=== PATIENT | male | born 1980 | race Caucasian/White ===

== ENCOUNTER 2016-09-05 19:43 | Emergency (ER) | payer SELFPAY ==
[~2016-09-05] VITALS: Ht 180.3 cm; Wt 83.0 kg
[~2016-09-05 19:43] MED LIST: CLON.5 PO; DICL75 PO; MMW SS; PENI500T PO
[2016-09-05 19:44] VITALS: BP 167/101; PULSE 92; RESP 15; TEMP 97.2; O2SAT 97
[2016-09-06 01:41] VITALS: BP 171/113; PULSE 98; RESP 18; O2SAT 98
[2016-09-06 02:02] VITALS: BP 155/98; PULSE 92; RESP 18; O2SAT 96
[2016-09-06] MEDS ORDERED: ACETAMINOPHEN 325 MG TAB PO ONE (03:00)
[2016-09-06] MEDS ORDERED: ONDANSETRON HCL 4 MG/2 ML VIAL IV PUSH ONE (03:00)
[2016-09-06 03:21] VITALS: BP 160/95; PULSE 92; RESP 18; O2SAT 97
--- NOTE | 2016-09-06 03:21 | RADRPT ---
EXAM DATE/TIME: 09/06/2016 03:09 [facility] COMPARISON: CT BRAIN W/O CONTRAST, August 07, 2014, 21:36. INDICATIONS : Snycopal episode. Left frontal head trauma. RADIATION DOSE: 38.55 CTDIvol (mGy) MEDICAL HISTORY : Seizures. Hypertension. SURGICAL HISTORY : None. ENCOUNTER: Initial ACUITY: 1 day PAIN SCALE: 7/10 LOCATION: Left frontal TECHNIQUE: Multiple contiguous axial images were obtained of the head. Using automated exposure control and adj ustment of the mA and/or kV according to patient size, radiation dose was kept as low as reasonably a chievable to obtain optimal diagnostic quality images. FINDINGS: CEREBRUM: The ventricles are normal for age. No evidence of midline shift, mass lesion, hemorrhage or acute in farction. No extra-axial fluid collections are seen. POSTERIOR FOSSA: The cerebellum and brainstem are intact. The 4th ventricle is midline. The cerebellopontine angle i s unremarkable. EXTRACRANIAL: The visualized portion of the orbits is intact. SKULL: The calvaria is intact. No evidence of skull fracture. CONCLUSION: Normal examination. Joseph Mathew MD on September 06, 2016 at 3:19 Board Certified Radiologist. This report was verified electronically.
[2016-09-06 03:36] LABS: BASOPHIL % 0.6 % (0.0-2.0); EOSINOPHIL # 0.5 TH/MM3 (0-0.4); EOSINOPHIL % 8.5 % (0.0-4.0); HEMO FLAGS DIFF FINAL; LYMPH % 33.1 % (9.0-44.0); LYMPHOCYTE # 2.1 TH/MM3 (1.0-4.8); MEAN CELL VOLUME 92.2 FL (80.0-100.0); MEAN CORPUSCULAR HGB CONC 33.6 % (32.0-36.0); MONO % 10.3 % (0.0-8.0); NEUT % 47.5 % (16.0-70.0); PLATELET COUNT 229 TH/MM3 (150-450); RED BLOOD COUNT 4.99 MIL/MM3 (4.50-5.90); RED CELL DISTRIBUTION WIDTH 13.5 % (11.6-17.2); WHITE BLOOD COUNT 6.3 TH/MM3 (4.0-11.0)
[2016-09-06 03:47] LABS: ALKALINE PHOSPHATASE 58 U/L (45-117); TOTAL BILIRUBIN ADULT 0.3 MG/DL (0.2-1.0)
[2016-09-06 03:48] LABS: ALT (GPT) 75 U/L (12-78); ANION GAP 8 MEQ/L (5-15); AST (GOT) 78 U/L (15-37); BICARBONATE 27.5 MEQ/L (21.0-32.0); BLOOD UREA NITROGEN 14 MG/DL (7-18); CHLORIDE 104 MEQ/L (98-107); GLOMERULAR FILTRATION RATE 124 ML/MIN (>89); POTASSIUM 4.1 MEQ/L (3.5-5.1); SODIUM (NA) 139 MEQ/L (136-145)
[2016-09-06 04:33] VITALS: BP 106/57; PULSE 73; RESP 16; O2SAT 98
[2016-09-06 04:50] VITALS: BP 129/79
--- NOTE | 2016-09-06 04:52 | PD ---
HPI Chief Complaint: Fall Time Seen by Provider: 02:12 Travel History International Travel<30 days: No Contact w/Intl Traveler<30days: No Traveled to known affect area: No History of Present Illness HPI Patient is a 35-year-old male comes in after he says he possibly had a seizure this morning. He said he had a seizure once several years ago, but never followed up with any doctors regarding this. He is not on any medications for seizures. He says he remembers walking in the hallway, and then waking up on the floor. He is a lump to the left side of his head, and complains of a headache with some nausea. Otherwise he has been feeling normally. He denies cough, cold, fever, chills. He denies loss of urine or stool during the event. He does say that he bit his tongue. PFSH Past Medical History Anxiety: Yes Depression: Yes Diabetes: No Diminished Hearing: No Diverticulitis: Yes Hepatitis: Yes (c) Hypertension: Yes Seizures: Yes Tetanus Vaccination: Unknown Past Surgical History Other Surgery: Yes (SINUS) Social History Alcohol Use: Yes (OCCASIONALLY) Tobacco Use: Yes (/2 PPD) Substance Use: No Allergies-Medications (Allergen,Severity, Reaction): Coded Allergies: No Known Allergies (Verified , 09/05/16) Reported Meds & Prescriptions Reported Meds & Active Scripts Active Hydrocortisone Topical 1% Cream 1 Applic TOPICAL BID 7 Days Review of Systems Except as stated in HPI: all other systems reviewed are Neg General / Constitutional: No: Fever, Chills HENT: Positive: Headaches Cardiovascular: No: Chest Pain or Discomfort Respiratory: No: Shortness of Breath Gastrointestinal: Positive: Nausea, No: Vomiting Musculoskeletal: No: Weakness, Pain Skin: No Rash, No Change in Pigmentation Neurologic: No: Weakness, Dizziness Physical Exam Narrative GENERAL: Awake and alert in no acute distress. SKIN: Warm and dry. Erythematous papules on both forearms with excoriations present. HEAD: Atraumatic. Normocephalic. Large hematoma above her left eye on the forehead. EYES: Pupils equal and round. No scleral icterus. Extraocular movements intact. ENT: Mucous membranes pink and moist. NECK: Trachea midline. No JVD. No cervical spine tenderness. CARDIOVASCULAR: Regular rate and rhythm. No murmur appreciated. RESPIRATORY: No accessory muscle use. Clear to auscultation. Breath sounds equal bilaterally. GASTROINTESTINAL: Abdomen soft, non-tender, nondistended. Hepatic and splenic margins not palpable. MUSCULOSKELETAL: No obvious deformities. No clubbing. No cyanosis. No edema. NEUROLOGICAL: Awake and alert. No obvious cranial nerve deficits. Motor grossly within normal limits. Normal speech. PSYCHIATRIC: Appropriate mood and affect; insight and judgment normal. Data Data Last Documented VS Vital Signs Date Time Temp Pulse Resp B/P Pulse Ox O2 Delivery O2 Flow Rate FiO2 09/06/16 04:50 87 18 129/79 97 09/06/16 03:21 Room Air 09/05/16 19:44 97.2 Orders Complete Blood Count With Diff (09/06/16 02:48) Comprehensive Metabolic Panel (09/06/16 02:48) Ct Brain W/O Iv Contrast(Rout) (09/06/16 ) Ondansetron Inj (Zofran Inj) (09/06/16 03:00) Acetaminophen (Tylenol) (09/06/16 03:00) Mandatory Outpatient Referral (09/06/16 04:52) Labs Laboratory Tests Test 09/06/16 03:00 White Blood Count 6.3 TH/MM3 Red Blood Count 4.99 MIL/MM3 Hemoglobin 15.4 GM/DL Hematocrit 46.0 % Mean Corpuscular Volume 92.2 FL Mean Corpuscular Hemoglobin 31.0 PG Mean Corpuscular Hemoglobin 33.6 % Concent Red Cell Distribution Width 13.5 % Platelet Count 229 TH/MM3 Mean Platelet Volume 8.8 FL Neutrophils (%) (Auto) 47.5 % Lymphocytes (%) (Auto) 33.1 % Monocytes (%) (Auto) 10.3 % Eosinophils (%) (Auto) 8.5 % Basophils (%) (Auto) 0.6 % Neutrophils # (Auto) 3.0 TH/MM3 Lymphocytes # (Auto) 2.1 TH/MM3 Monocytes # (Auto) 0.7 TH/MM3 Eosinophils # (Auto) 0.5 TH/MM3 Basophils # (Auto) 0.0 TH/MM3 CBC Comment DIFF FINAL Differential Comment Sodium Level 139 MEQ/L Potassium Level 4.1 MEQ/L Chloride Level 104 MEQ/L Carbon Dioxide Level 27.5 MEQ/L Anion Gap 8 MEQ/L Blood Urea Nitrogen 14 MG/DL Creatinine 0.73 MG/DL Estimat Glomerular Filtration 124 ML/MIN Rate Random Glucose 87 MG/DL Calcium Level 8.4 MG/DL Total Bilirubin 0.3 MG/DL Aspartate Amino Transf 78 U/L (AST/SGOT) Alanine Aminotransferase 75 U/L (ALT/SGPT) Alkaline Phosphatase 58 U/L Total Protein 6.9 GM/DL Albumin 3.6 GM/DL MDM Medical Decision Making Medical Screen Exam Complete: Yes Emergency Medical Condition: Yes Medical Record Reviewed: Yes Differential Diagnosis Seizure versus syncope versus dehydration versus electrolyte abnormality Narrative Course Patient is a 35-year-old male comes in after what he thinks was a seizure this morning. Exam shows large hematoma to the left side of the forehead. There are no neurologic abnormalities. CT of the head performed shows no acute abnormalities. Labs sent show no acute abnormalities. Patient given Tylenol for headache and Zofran for nausea. He feels better after medications. Patient advised follow-up with neurology, mandatory consult placed. Patient advised to return to the ED as needed for any worsening symptoms. Diagnosis Primary Impression: Seizure Referrals: Niraj Dupree MD call for appointment Patient Instructions: General Instructions, Recurrent Seizures in Adults (ED) Additional Instructions: Follow up with neurology. You cannot drive until you have not had a seizure for 6 months. Return to the ED as needed for any worsening symptoms. Scripts Hydrocortisone Topical 1% Cream1 Applic TOPICAL BID 7 Days Ref 0 Prov:Joseline Glass MD 09/06/16 Disposition: 01 DISCHARGE HOME Condition: Stable Joseline Glass MD Sep 06, 2016 04:52 Joseline Glass MD Sep 06, 2016 04:52
[2016-09-06] MEDS ORDERED: HYDR1CRE TOPICAL (05:03)
== END 2016-09-06 05:08 | disposition home or self-care (01) ==
LOC: NEPE 19:43
DX: R56.9 Unspecified convulsions (principal); S00.83XA Contusion of other part of head, initial encounter; R11.0 Nausea; I10 Essential (primary) hypertension; F17.200 Nicotine dependence, unspecified, uncomplicated; Z86.59 Personal history of other mental and behavioral disorders; Z87.19 Personal history of other diseases of the digestive system; Z86.19 Personal history of other infectious and parasitic diseases; W18.39XA Other fall on same level, initial encounter
CPT/HCPCS: 70450; 80053; 85025; 96374; 99284; J2405

== ENCOUNTER 2016-11-08 11:41 | Observation (INO) | payer SELFPAY ==
[~2016-11-08] VITALS: Ht 180.3 cm; Wt 85.0 kg
[~2016-11-08 11:41] MED LIST changes: -CLON.5 PO; -DICL75 PO; +HYDR1CRE TOPICAL; -MMW SS; -PENI500T PO
[2016-11-08 11:42] VITALS: BP 141/89; PULSE 100; RESP 20; TEMP 98; O2SAT 97
--- NOTE | 2016-11-08 12:11 | PD ---
HPI Chief Complaint: Skin Problem Time Seen by Provider: 12:00 Travel History International Travel<30 days: No Contact w/Intl Traveler<30days: No Traveled to known affect area: No History of Present Illness HPI 36-year-old male presents for evaluation of right arm redness, swelling, pain. He reports that he woke up with these symptoms yesterday morning. The pain, redness and swelling has progressively gotten worse which prompted evaluation. The pain is a throbbing pain, constant, worse with flexion, extension, internal and external rotation of the right forearm and elbow. Associated with nausea, vomiting yesterday and today, as well as chills. 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 He doesn't recall any specific instance of being poked in his right arm but he does know that he was poked several times. He vehemently denies any IV drug abuse and says that he has never used any IV drugs. Last tetanus vaccination approximate 7 years ago. No other complaints. PFSH Past Medical History Anxiety: Yes Depression: Yes Cardiovascular Problems: Yes (HTN) Diabetes: No Diminished Hearing: No Diverticulitis: Yes Hepatitis: Yes (c) Hypertension: Yes Seizures: Yes Past Surgical History Other Surgery: Yes (SINUS) Social History Alcohol Use: Yes (OCCASIONALLY) Tobacco Use: Yes (1/2 PPD) Substance Use: No Allergies-Medications (Allergen,Severity, Reaction): Coded Allergies: No Known Allergies (Verified , 11/08/16) Reported Meds & Prescriptions Reported Meds & Active Scripts Active Hydrocortisone Topical 1% Cream 1 Applic TOPICAL BID 7 Days Review of Systems Except as stated in HPI: all other systems reviewed are Neg Physical Exam Narrative GENERAL: Well-developed well-nourished male in no acute distress SKIN: Warm and dry. Marked erythema, induration of the skin proximal right forearm and antecubital fossa region of the right arm. There is no area of fluctuance. No obvious puncture wounds are noted. No palpable foreign bodies. No axillary lymphadenopathy. HEAD: Atraumatic. Normocephalic. EYES: Pupils equal and round. No scleral icterus. No injection or drainage. ENT: No nasal bleeding or discharge. Mucous membranes pink and moist. NECK: Trachea midline. No JVD. CARDIOVASCULAR: Regular rate and rhythm. No murmur appreciated. RESPIRATORY: No accessory muscle use. Clear to auscultation. Breath sounds equal bilaterally. GASTROINTESTINAL: Abdomen soft, non-tender, nondistended. Hepatic and splenic margins not palpable. MUSCULOSKELETAL: Skin as noted above. The patient has limited flexion and extension and internal and external rotation of the right forearm and elbow. There is no tenderness to palpation to the posterior right elbow joint itself. NEUROLOGICAL: Awake and alert. No obvious cranial nerve deficits. Motor grossly within normal limits. Normal speech. Data Data Last Documented VS Vital Signs Date Time Temp Pulse Resp B/P Pulse Ox O2 Delivery O2 Flow Rate FiO2 11/08/16 11:42 98.0 100 20 141/89 97 Room Air Orders Complete Blood Count With Diff (11/08/16 12:04) Comprehensive Metabolic Panel (11/08/16 12:04) Lactic Acid Sepsis Protocol (11/08/16 12:04) Magnesium (Mg) (11/08/16 12:04) Blood Culture (11/08/16 12:04) Forearm (2vws) (11/08/16 ) Act Partial Throm Time (Ptt) (11/08/16 12:04) Prothrombin Time / Inr (Pt) (11/08/16 12:04) Tetanus/Diphtheria Tox Adult (Tetanus/Di (11/08/16 12:15) Ct Forearm W Iv Contrast (11/08/16 ) Ketorolac Inj (Toradol Inj) (11/08/16 12:45) Clindamycin Inj (Cleocin Inj) (11/08/16 12:45) Cefazolin Inj (Ancef Inj) (11/08/16 12:45) Labs Laboratory Tests Test 11/08/16 12:20 White Blood Count 13.4 TH/MM3 Red Blood Count 5.33 MIL/MM3 Hemoglobin 16.0 GM/DL Hematocrit 48.0 % Mean Corpuscular Volume 90.0 FL Mean Corpuscular Hemoglobin 30.0 PG Mean Corpuscular Hemoglobin 33.4 % Concent Red Cell Distribution Width 12.8 % Platelet Count 196 TH/MM3 Mean Platelet Volume 8.9 FL Neutrophils (%) (Auto) 74.1 % Lymphocytes (%) (Auto) 9.8 % Monocytes (%) (Auto) 12.5 % Eosinophils (%) (Auto) 3.4 % Basophils (%) (Auto) 0.2 % Neutrophils # (Auto) 10.0 TH/MM3 Lymphocytes # (Auto) 1.3 TH/MM3 Monocytes # (Auto) 1.7 TH/MM3 Eosinophils # (Auto) 0.5 TH/MM3 Basophils # (Auto) 0.0 TH/MM3 CBC Comment DIFF FINAL Differential Comment Prothrombin Time 9.8 SEC Prothromb Time International 0.9 RATIO Ratio Activated Partial 28.6 SEC Thromboplast Time Lactic Acid Level 1.8 mmol/L MDM Medical Decision Making Medical Screen Exam Complete: Yes Emergency Medical Condition: Yes Medical Record Reviewed: Yes Differential Diagnosis Cellulitis, retained foreign body, myositis, septic arthritis, sepsis Narrative Course 36-year-old male presents with 2 days progressive right arm pain, redness, swelling, as well as nausea and vomiting and chills. 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 On initial examination he is tachycardic. He is not febrile. He does have marked induration and erythema of the skin of the right forearm and limited range of motion of the right elbow. Lab work, blood cultures, right forearm x-ray have been ordered. Tetanus vaccination has been ordered. The patient was initially seen in triage where workup was initiated. The patient will be moved to a medical bed when one becomes available. Joey Gee Nov 08, 2016 12:11
[2016-11-08] MEDS ORDERED: TETANUS/DIPHTHERIA TOXOID ADULT 0.5 ML VIAL IM ONE (12:15)
[2016-11-08 12:39] LABS: BASOPHIL % 0.2 % (0.0-2.0); EOSINOPHIL # 0.5 TH/MM3 (0-0.4); EOSINOPHIL % 3.4 % (0.0-4.0); HEMO FLAGS DIFF FINAL; LYMPH % 9.8 % (9.0-44.0); LYMPHOCYTE # 1.3 TH/MM3 (1.0-4.8); MEAN CORPUSCULAR HGB CONC 33.4 % (32.0-36.0); MONO % 12.5 % (0.0-8.0); NEUT % 74.1 % (16.0-70.0); PLATELET COUNT 196 TH/MM3 (150-450); RED BLOOD COUNT 5.33 MIL/MM3 (4.50-5.90); RED CELL DISTRIBUTION WIDTH 12.8 % (11.6-17.2); WHITE BLOOD COUNT 13.4 TH/MM3 (4.0-11.0)
--- NOTE | 2016-11-08 12:42 | PD ---
Physical Exam Date Seen by Provider: Nov 08, 2016 Time Seen by Provider: 12:41 Narrative 36-year-old male with presumed abscess to the right forearm seen by Joey Gee PAC in triage with workup started. Patient has presumed abscess with cellulitis of the right forearm for the past 4 days. Please see Joey Gee's note. Data Data Last Documented VS Vital Signs Date Time Temp Pulse Resp B/P Pulse Ox O2 Delivery O2 Flow Rate FiO2 11/08/16 15:25 88 16 123/68 96 Room Air 11/08/16 11:42 98.0 Orders Complete Blood Count With Diff (11/08/16 12:04) Comprehensive Metabolic Panel (11/08/16 12:04) Lactic Acid Sepsis Protocol (11/08/16 12:04) Magnesium (Mg) (11/08/16 12:04) Blood Culture (11/08/16 12:04) Forearm (2vws) (11/08/16 ) Act Partial Throm Time (Ptt) (11/08/16 12:04) Prothrombin Time / Inr (Pt) (11/08/16 12:04) Tetanus/Diphtheria Tox Adult (Tetanus/Di (11/08/16 12:15) Ct Forearm W Iv Contrast (11/08/16 ) Ketorolac Inj (Toradol Inj) (11/08/16 12:45) Clindamycin Inj (Cleocin Inj) (11/08/16 12:45) Cefazolin Inj (Ancef Inj) (11/08/16 12:45) Iohexol 350 Inj (Omnipaque 350 Inj) (11/08/16 13:48) Lidocai-Epi 1%-1:100,000 Inj (Xylocaine- (11/08/16 14:30) Abscess Culture And Gram Stain (11/08/16 14:27) Lidocai-Epi 1%-1:100,000 Inj (Xylocaine- (11/08/16 14:30) Morphine Inj (Morphine Inj) (11/08/16 14:45) Ondansetron Inj (Zofran Inj) (11/08/16 14:45) Alprazolam (Xanax) (11/08/16 16:00) Admit Order (Ed Use Only) (11/08/16 15:51) Consult Hand Surgery (11/08/16 ) Place In Observation (11/08/16 ) Code Status (11/08/16 15:51) Vital Signs (Adult) Q4H (11/08/16 15:51) Activity Oob Ad Trinity (11/08/16 15:51) Intake + Output [id number] (11/08/16 15:51) ^ Notify Dr: Other (11/08/16 15:51) Diet Regular Basic (11/08/16 Dinner) Sodium Chlor 0.9% 1000 Ml Inj (Ns 1000 M (11/08/16 15:51) Sodium Chloride 0.9% Flush (Ns Flush) (11/08/16 16:00) Labs Laboratory Tests Test 11/08/16 12:20 White Blood Count 13.4 TH/MM3 Red Blood Count 5.33 MIL/MM3 Hemoglobin 16.0 GM/DL Hematocrit 48.0 % Mean Corpuscular Volume 90.0 FL Mean Corpuscular Hemoglobin 30.0 PG Mean Corpuscular Hemoglobin 33.4 % Concent Red Cell Distribution Width 12.8 % Platelet Count 196 TH/MM3 Mean Platelet Volume 8.9 FL Neutrophils (%) (Auto) 74.1 % Lymphocytes (%) (Auto) 9.8 % Monocytes (%) (Auto) 12.5 % Eosinophils (%) (Auto) 3.4 % Basophils (%) (Auto) 0.2 % Neutrophils # (Auto) 10.0 TH/MM3 Lymphocytes # (Auto) 1.3 TH/MM3 Monocytes # (Auto) 1.7 TH/MM3 Eosinophils # (Auto) 0.5 TH/MM3 Basophils # (Auto) 0.0 TH/MM3 CBC Comment DIFF FINAL Differential Comment Prothrombin Time 9.8 SEC Prothromb Time International 0.9 RATIO Ratio Activated Partial 28.6 SEC Thromboplast Time Sodium Level 134 MEQ/L Potassium Level 3.6 MEQ/L Chloride Level 98 MEQ/L Carbon Dioxide Level 25.7 MEQ/L Anion Gap 10 MEQ/L Blood Urea Nitrogen 7 MG/DL Creatinine 0.91 MG/DL Estimat Glomerular Filtration 95 ML/MIN Rate Random Glucose 107 MG/DL Lactic Acid Level 1.8 mmol/L Calcium Level 8.6 MG/DL Magnesium Level 2.0 MG/DL Total Bilirubin 0.5 MG/DL Aspartate Amino Transf 25 U/L (AST/SGOT) Alanine Aminotransferase 50 U/L (ALT/SGPT) Alkaline Phosphatase 84 U/L Total Protein 7.5 GM/DL Albumin 3.5 GM/DL [facility] Medical Record Reviewed: Yes Supervised Visit with WAYNE: Yes Differential Diagnosis Right arm cellulitis. Right arm abscess. History of Puncture wound right arm. Narrative Course Patient is in pain but medically stable at time of exam. Vital signs are reviewed. CBC shows slight leukocytosis of 13.4 with a minor shift. Chemistry shows a sodium 134, random glucose of 107, and a lactic acid of 1.8. Coagulation studies are normal. X-ray of the right forearm shows no bony process but large amount of soft tissue swelling. Patient is given 30 mg Toradol IV as well as 900 mg clindamycin IV and 1 g Ancef IV. Blood cultures 2 are ordered prior to IV administration. CT with IV contrast of the right forearm is ordered to rule out abscess. CT shows an abscess measuring almost 4 cm x 3 cm on the proximal dorsal forearm. Call was placed with Dr. Jackman, the hand surgeon travel professional who recommended draining and here in the ED. I&D of the abscess was performed and cultures were obtained. I recommend the patient stays for observation overnight with IV antibiotics and pain control with reevaluation the morning to ensure improvement. I'm concerned as it is over his elbow, although currently I do not suspect any joint involvement. 1510 hrs. call was placed to the hospitalist for admission. 1554 hrs. patient was discussed with Dr. Philippe who will admit the patient observation. Procedures Procedure Narrative After the risks and benefits were discussed the following procedure was performed: INCISION AND DRAINAGE OF ABSCESS: The area was prepped and was sterilely draped. A subcutaneous wheal of 1% % Xylocaine with epi with a total number 5 mL was used to anesthetize the area. The area was properly anesthetized. A number 11 scalpel was used to make a 1.5 -cm incision across the area of the abscess. Cultures were obtained. The abscess was drained utilizing blunt dissection an irrigated with normal saline. Half inch inch iodoform packing was placed in the wound. Sterile dressing applied. Diagnosis Primary Impression: Cutaneous abscess of right upper extremity Additional Impression: Right arm cellulitis Admitting Information Admitting Physician Requests: Observation Condition: Stable Juan Diego Berg Nov 08, 2016 12:42
[2016-11-08] MEDS ORDERED: KETOROLAC TROMETHAMINE 30 MG/ML (IVP) VIAL IV PUSH ONE (12:45)
[2016-11-08] MEDS ORDERED: CLINDAMYCIN INJ 900 MG in SODIUM CHLORIDE 0.9% INJ 100 ML IV ONE (12:45)
[2016-11-08 12:50] LABS: APTT (PATIENT) 28.6 SEC (24.3-30.1); INTERNATIONAL NORMALIZED RATIO 0.9 RATIO; PROTHROMBIN TIME - PATIENT 9.8 SEC (9.8-11.6)
--- NOTE | 2016-11-08 12:52 | RADRPT ---
EXAM DATE/TIME: 11/08/2016 12:31 [facility] COMPARISON: No previous studies available for comparison. INDICATIONS : Pain, swelling and reddness right forearm, denies injury MEDICAL HISTORY : None. SURGICAL HISTORY : None. ENCOUNTER: Initial ACUITY: 3 days PAIN SCORE: 10/10 LOCATION: Right Forearm FINDINGS: Two view examination of the right forearm demonstrates no evidence of fracture or dislocation. Bony mineralization is normal. There is soft tissue swelling at the lateral elbow region. CONCLUSION: Soft tissue swelling. A bony abnormality is not seen. Papito Mejia MD on November 08, 2016 at 12:50 Board Certified Radiologist. This report was verified electronically.
[2016-11-08 13:01] LABS: ANION GAP 10 MEQ/L (5-15); AST (GOT) 25 U/L (15-37); BICARBONATE 25.7 MEQ/L (21.0-32.0); BLOOD UREA NITROGEN 7 MG/DL (7-18); CHLORIDE 98 MEQ/L (98-107); GLOMERULAR FILTRATION RATE 95 ML/MIN (>89); POTASSIUM 3.6 MEQ/L (3.5-5.1); SODIUM (NA) 134 MEQ/L (136-145)
[2016-11-08 13:04] LABS: ALKALINE PHOSPHATASE 84 U/L (45-117); ALT (GPT) 50 U/L (12-78); TOTAL BILIRUBIN ADULT 0.5 MG/DL (0.2-1.0)
[2016-11-08] MEDS ORDERED: XANA1TAB2 PO (13:04)
[2016-11-08] MEDS ORDERED: IOHEXOL 350 MG/ML 10 ML VIAL (for RAD DIAG) IV ONE (13:48)
--- NOTE | 2016-11-08 14:12 | RADRPT ---
EXAM DATE/TIME: 11/08/2016 13:28 [facility] COMPARISON: No previous studies available for comparison. INDICATIONS: Right arm redness, swelling, and pain for two days. IV CONTRAST: 70 cc Omnipaque 350 (iohexol) IV RADIATION DOSE: 11.61 CTDIvol (mGy) MEDICAL HISTORY: Seizures. Hypertension. Hepatitis C. SURGICAL HISTORY: None. ENCOUNTER: Initial ACUITY: 2 days PAIN SCALE: 10/10 LOCATION: Right arm TECHNIQUE: Volumetric scanning of the forearm was performed. Using automated exposure control and adjustment of the mA and/or kV according to patient size, radiation dose was kept as low as reasonably achievable to obtain optimal diagnostic quality images. FINDINGS: There is subcutaneous edema seen throughout the inferior aspect of the upper arm especially posterior ly and laterally. This extends into the posterior and lateral aspects of the forearm. In the deep subcutan eous tissue abutting the extensor musculature there is a focal fluid collection measuring 3.7 x 1.7 x 3.4 cm. Th is likely represents an abscess in the deep subcutaneous fat adjacent to the extensor muscles. The bony struct ures are intact. The elbow is normally aligned. CONCLUSION: Soft tissue swelling with a focal fluid collection at the proximal lateral deep subcutaneous fat karen cent to the proximal aspect of the extensor musculature likely representing a 3.7 cm abscess. Papito Mejia MD on November 08, 2016 at 13:55 Board Certified Radiologist. This report was verified electronically.
[2016-11-08] MEDS ORDERED: LIDOCAINE 1%/EPINEPHrine 1:100,000 SOLN 20 ML VIAL INFIL ONE (14:30)
[2016-11-08] MEDS ORDERED: LIDOCAINE 1%/EPINEPHrine 1:100,000 SOLN 50 ML VIAL ONE (14:30)
[2016-11-08] MEDS ORDERED: ONDANSETRON HCL 4 MG/2 ML VIAL IV PUSH ONE (14:45)
[2016-11-08] MEDS ORDERED: MORPHINE SULFATE 4 MG/ML INJ IV PUSH ONE (14:45)
[2016-11-08 15:25] VITALS: BP 123/68; PULSE 88; RESP 16; O2SAT 96
--- NOTE | 2016-11-08 15:43 | PD ---
Physical Exam Narrative I, Dr. Glass, have reviewed the advance practice practitioner's documentation and am in agreement, met with the patient face to face, made the diagnosis, and the medical decision making was done by me. *My assessment and Findings: Patient is a 36 year old male who comes in complaining of pain and swelling to his right arm. 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 Exam shows large area of edema and erythema to the anterior part of the right elbow. He is able to flex to 90 degrees and extend almost fully. The posterior aspect of the albow is soft and nontender. The joint itself is not swollen. Data Data Last Documented VS Vital Signs Date Time Temp Pulse Resp B/P Pulse Ox O2 Delivery O2 Flow Rate FiO2 11/08/16 15:25 88 16 123/68 96 Room Air 11/08/16 11:42 98.0 Orders Complete Blood Count With Diff (11/08/16 12:04) Comprehensive Metabolic Panel (11/08/16 12:04) Lactic Acid Sepsis Protocol (11/08/16 12:04) Magnesium (Mg) (11/08/16 12:04) Blood Culture (11/08/16 12:04) Forearm (2vws) (11/08/16 ) Act Partial Throm Time (Ptt) (11/08/16 12:04) Prothrombin Time / Inr (Pt) (11/08/16 12:04) Tetanus/Diphtheria Tox Adult (Tetanus/Di (11/08/16 12:15) Ct Forearm W Iv Contrast (11/08/16 ) Ketorolac Inj (Toradol Inj) (11/08/16 12:45) Clindamycin Inj (Cleocin Inj) (11/08/16 12:45) Cefazolin Inj (Ancef Inj) (11/08/16 12:45) Iohexol 350 Inj (Omnipaque 350 Inj) (11/08/16 13:48) Lidocai-Epi 1%-1:100,000 Inj (Xylocaine- (11/08/16 14:30) Abscess Culture And Gram Stain (11/08/16 14:27) Lidocai-Epi 1%-1:100,000 Inj (Xylocaine- (11/08/16 14:30) Morphine Inj (Morphine Inj) (11/08/16 14:45) Ondansetron Inj (Zofran Inj) (11/08/16 14:45) Alprazolam (Xanax) (11/08/16 16:00) Admit Order (Ed Use Only) (11/08/16 15:51) Consult Hand Surgery (11/08/16 ) Place In Observation (11/08/16 ) Code Status (11/08/16 15:51) Vital Signs (Adult) Q4H (11/08/16 15:51) Activity Oob Ad Trinity (11/08/16 15:51) Intake + Output [id number] (11/08/16 15:51) ^ Notify Dr: Other (11/08/16 15:51) Diet Regular Basic (11/08/16 Dinner) Sodium Chlor 0.9% 1000 Ml Inj (Ns 1000 M (11/08/16 15:51) Sodium Chloride 0.9% Flush (Ns Flush) (11/08/16 16:00) Sodium Chloride 0.9% Flush (Ns Flush) (11/08/16 21:00) Acetaminophen (Tylenol) (11/08/16 16:00) Ondansetron Inj (Zofran Inj) (11/08/16 16:00) Bisacodyl Supp (Dulcolax Supp) (11/08/16 16:00) Docusate Sodium (Colace) (11/08/16 16:00) Basic Metabolic Panel (Bmp) (11/09/16 06:00) Complete Blood Count With Diff (11/09/16 06:00) Enoxaparin Inj (Lovenox Inj) (11/08/16 17:00) Naloxone Inj (Narcan Inj) (11/08/16 16:00) Labs Laboratory Tests Test 11/08/16 12:20 White Blood Count 13.4 TH/MM3 Red Blood Count 5.33 MIL/MM3 Hemoglobin 16.0 GM/DL Hematocrit 48.0 % Mean Corpuscular Volume 90.0 FL Mean Corpuscular Hemoglobin 30.0 PG Mean Corpuscular Hemoglobin 33.4 % Concent Red Cell Distribution Width 12.8 % Platelet Count 196 TH/MM3 Mean Platelet Volume 8.9 FL Neutrophils (%) (Auto) 74.1 % Lymphocytes (%) (Auto) 9.8 % Monocytes (%) (Auto) 12.5 % Eosinophils (%) (Auto) 3.4 % Basophils (%) (Auto) 0.2 % Neutrophils # (Auto) 10.0 TH/MM3 Lymphocytes # (Auto) 1.3 TH/MM3 Monocytes # (Auto) 1.7 TH/MM3 Eosinophils # (Auto) 0.5 TH/MM3 Basophils # (Auto) 0.0 TH/MM3 CBC Comment DIFF FINAL Differential Comment Prothrombin Time 9.8 SEC Prothromb Time International 0.9 RATIO Ratio Activated Partial 28.6 SEC Thromboplast Time Sodium Level 134 MEQ/L Potassium Level 3.6 MEQ/L Chloride Level 98 MEQ/L Carbon Dioxide Level 25.7 MEQ/L Anion Gap 10 MEQ/L Blood Urea Nitrogen 7 MG/DL Creatinine 0.91 MG/DL Estimat Glomerular Filtration 95 ML/MIN Rate Random Glucose 107 MG/DL Lactic Acid Level 1.8 mmol/L Calcium Level 8.6 MG/DL Magnesium Level 2.0 MG/DL Total Bilirubin 0.5 MG/DL Aspartate Amino Transf 25 U/L (AST/SGOT) Alanine Aminotransferase 50 U/L (ALT/SGPT) Alkaline Phosphatase 84 U/L Total Protein 7.5 GM/DL Albumin 3.5 GM/DL MDM Supervised Visit with WAYNE: Yes Narrative Course CT performed of the arm shows large fluid collection/abscess. Abscess was drained by DONYA Berg. Patient given IV antibiotics. Admitted for further management. Diagnosis Primary Impression: Right arm cellulitis Admitting Information Admitting Physician Requests: Observation Condition: Stable Joseline Glass MD Nov 08, 2016 15:42
[2016-11-08] MEDS ORDERED: SODIUM CHLORIDE 0.9% FLUSH 5 ML FLUSH FLUSH PRN (16:00)
[2016-11-08] MEDS ORDERED: ACETAMINOPHEN 325 MG TAB PO PRN (16:00)
[2016-11-08] MEDS ORDERED: NALOXONE HCL 0.4 MG/ML AMP IV PRN (16:00)
[2016-11-08] MEDS ORDERED: BISACODYL 10 MG SUPP PR PRN (16:00)
--- NOTE | 2016-11-08 16:00 | HHI.HP ---
[facility] Primary Care Physician No Primary Care Physician Admission Diagnosis Right Arm Abscess/Cellulitis Diagnoses: Chief Complaint: Right Arm Abscess/Cellulitis Travel History International Travel<30 Days: No Contact w/Intl Traveler <30 Da: No Traveled to Known Affected Are: No History of Present Illness This is a pleasant 36 y/o male who came to ER with Right arm redness swelling and pain, reported that woke up with this symptoms yesterday morning, getting worse, as a constant pain, worse with flexion, Associated with nausea, vomiting yesterday and today, as well as chills. 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 He doesn't recall any specific instance of being poked in his right arm but he does know that he was poked several times. He vehemently denies any IV drug abuse and says that he has never used any IV drugs. Last tetanus vaccination approximate 7 years ago. the patient states he started with this symptomatology and took some Amoxicillin that he had at home. Past Family Social History Past Medical History Anxiety Depression Hypertension Diverticulitis Hepatitis C Seizure disorder. Past Surgical History Sinus Surgery Reported Medications Reported Meds & Active Scripts Active Reported Xanax (Alprazolam) 1 Mg Tab 1 Mg PO Q6H PRN Allergies: Coded Allergies: No Known Allergies (Verified , 11/08/16) Active Ordered Medications Current Medications Medications (Trade) Dose Ordered Sig/[facility] Route Start Time Stop Time Status Last Admin Alprazolam 1 mg 1 mg Q6H PRN PO 11/08/16 16:00 (NS 1000 ml Inj) 1,000 ml @ 100 mls/hr Q10H IV 11/08/16 15:51 11/08/16 16:27 (NS Flush) 2 ml UNSCH PRN FLUSH 11/08/16 16:00 (NS Flush) 2 ml BID FLUSH 11/08/16 21:00 (Tylenol) 650 mg Q4H PRN PO 11/08/16 16:00 (Zofran Inj) 4 mg Q6H PRN IVP 11/08/16 16:00 (Dulcolax Supp) 10 mg DAILY PRN AL 11/08/16 16:00 (Colace) 100 mg Q12H PO 11/08/16 16:00 11/08/16 16:26 (Lovenox Inj) 40 mg Q24H SQ 11/08/16 17:00 11/08/16 16:27 (Narcan Inj) 0.4 mg UNSCH PRN IV 11/08/16 16:00 (Prospect 5-325 Mg) 1 tab Q4H PRN PO 11/08/16 16:15 11/08/16 16:26 Family History Mother with Hypertension, DM II, Lung Cancer Father with Hypertension Brother two of them with Hypertension Social History Alcohol abuse occasional Tobacco dependence half pack daily Denies other toxic habits. Physical Exam Vital Signs Vital Signs Date Time Temp Pulse Resp B/P Pulse Ox O2 Delivery O2 Flow Rate FiO2 11/08/16 15:25 88 16 123/68 96 Room Air 11/08/16 11:42 98.0 100 20 141/89 97 Room Air Physical Exam GENERAL: Well-developed well-nourished male in no acute distress SKIN: Warm and dry. Marked erythema, induration of the skin proximal right forearm and antecubital fossa region of the right arm. There is no area of fluctuance. No obvious puncture wounds are noted. No palpable foreign bodies. No axillary lymphadenopathy. HEAD: Atraumatic. Normocephalic. EYES: Pupils equal and round. No scleral icterus. No injection or drainage. ENT: No nasal bleeding or discharge. Mucous membranes pink and moist. NECK: Trachea midline. No JVD. CARDIOVASCULAR: Regular rate and rhythm. No murmur appreciated. RESPIRATORY: No accessory muscle use. Clear to auscultation. Breath sounds equal bilaterally. GASTROINTESTINAL: Abdomen soft, non-tender, nondistended. Hepatic and splenic margins not palpable. MUSCULOSKELETAL: Skin as noted above. The patient has limited flexion and extension and internal and external rotation of the right forearm and elbow. There is no tenderness to palpation to the posterior right elbow joint itself. NEUROLOGICAL: Awake and alert. No obvious cranial nerve deficits. Motor grossly within normal limits. Normal speech. Laboratory Laboratory Tests Test 11/08/16 12:20 White Blood Count 13.4 Red Blood Count 5.33 Hemoglobin 16.0 Hematocrit 48.0 Mean Corpuscular Volume 90.0 Mean Corpuscular Hemoglobin 30.0 Mean Corpuscular Hemoglobin 33.4 Concent Red Cell Distribution Width 12.8 Platelet Count 196 Mean Platelet Volume 8.9 Neutrophils (%) (Auto) 74.1 Lymphocytes (%) (Auto) 9.8 Monocytes (%) (Auto) 12.5 Eosinophils (%) (Auto) 3.4 Basophils (%) (Auto) 0.2 Neutrophils # (Auto) 10.0 Lymphocytes # (Auto) 1.3 Monocytes # (Auto) 1.7 Eosinophils # (Auto) 0.5 Basophils # (Auto) 0.0 CBC Comment DIFF FINAL Differential Comment Prothrombin Time 9.8 Prothromb Time International 0.9 Ratio Activated Partial 28.6 Thromboplast Time Sodium Level 134 Potassium Level 3.6 Chloride Level 98 Carbon Dioxide Level 25.7 Anion Gap 10 Blood Urea Nitrogen 7 Creatinine 0.91 Estimat Glomerular Filtration 95 Rate Random Glucose 107 Lactic Acid Level 1.8 Calcium Level 8.6 Magnesium Level 2.0 Total Bilirubin 0.5 Aspartate Amino Transf 25 (AST/SGOT) Alanine Aminotransferase 50 (ALT/SGPT) Alkaline Phosphatase 84 Total Protein 7.5 Albumin 3.5 Date/Time Procedure Status Source Growth 11/08/16 15:10 Gram Stain Received Abscess Arm Pending 11/08/16 15:10 Wound Culture Received Abscess Arm Pending 11/08/16 12:25 Aerobic Blood Culture Received Blood Peripheral Pending 11/08/16 12:25 Anaerobic Blood Culture Received Blood Peripheral Pending Result Diagram: 11/08/16 1220 11/08/16 1220 Imaging Last Impressions Upper Extremity CT 11/08/16 0000 Signed Impressions: Service Date/Time: October 13:28 - CONCLUSION: Soft tissue swelling with a focal fluid collection at the proximal lateral deep subcutaneous fat adjacent to the proximal aspect of the extensor musculature likely representing a 3.7 cm abscess. Papito Mejia MD Radius/Ulna X-Ray 11/08/16 0000 Signed Impressions: Service Date/Time: October 12:31 - CONCLUSION: Soft tissue swelling. A bony abnormality is not seen. Papito Mejia MD Assessment and Plan Assessment and Plan 1. Cellulitis and abscess of the right arm status post I and D, will continue Ancef and Clindamycin and follow for discharge probable in am. 2. Anxiety disorder by history 3. Depression by history 4. Hypertension 5. hepatitis C by history 6. Seizure disorder DVT prophylaxis with Lovenox Code Status Full Code Physician Certification 2 Midnight Certification Type: Admission for Inpatient Services Order for Inpatient Services The services are ordered in accordance with Medicare regulations or non- Medicare payer requirements, as applicable. In the case of services not specified as inpatient-only, they are appropriately provided as inpatient services in accordance with the 2-midnight benchmark. Estimated LOS (days): 1 days is the estimated time the patient will need to remain in the hospital, assuming treatment plan goals are met and no additional complications. Post-Hospital Plan: Home Paul Burroughs MD Nov 08, 2016 16:00
[2016-11-08] MEDS: DOCUSATE SODIUM 100 MG CAP PO SCH (16:26)
[2016-11-08] MEDS: ACETAMINOPHEN/HYDROcodone 325 MG/5 MG TAB PO PRN ×2 (16:26→21:02)
[2016-11-08] MEDS: SODIUM CHLOR 0.9% 1000 ML INJ 1,000 ML IV SCH (16:27)
[2016-11-08] MEDS: ENOXAPARIN SODIUM 40 MG/0.4 ML SYRINGE SQ SCH (16:27)
[2016-11-08 19:09] VITALS: BP 127/77; PULSE 88; RESP 20; TEMP 98
[2016-11-08] MEDS: SODIUM CHLORIDE 0.9% FLUSH 5 ML FLUSH FLUSH SCH (21:00)
[2016-11-08] MEDS: ceFAZolin 2 GM PREMIX 50 ML IV SCH (21:02)
[2016-11-08] MEDS: CLINDAMYCIN INJ 600 MG in SODIUM CHLORIDE 0.9% INJ 100 ML IV SCH (22:08)
[2016-11-09] VITALS (7 sets, daily range): BP systolic 117–142; BP diastolic 58–90; PULSE 65–78; RESP 14–20; TEMP 96.7–98.1; O2SAT 92–98
[2016-11-09] MEDS: ACETAMINOPHEN/HYDROcodone 325 MG/5 MG TAB PO PRN ×5 (02:11→22:07)
[2016-11-09] MEDS: DOCUSATE SODIUM 100 MG CAP PO SCH ×2 (04:00→16:00)
[2016-11-09] MEDS: ceFAZolin 2 GM PREMIX 50 ML IV SCH ×2 (04:31→13:11)
[2016-11-09] MEDS: SODIUM CHLOR 0.9% 1000 ML INJ 1,000 ML IV SCH ×3 (04:31→21:51)
[2016-11-09] MEDS: CLINDAMYCIN INJ 600 MG in SODIUM CHLORIDE 0.9% INJ 100 ML IV SCH ×3 (05:23→22:07)
[2016-11-09 06:56] LABS: AUTOMATED NEUTROPHIL # 5.1 TH/MM3 (1.8-7.7); BASOPHIL # 0.1 TH/MM3 (0-0.2); BASOPHIL % 0.6 % (0.0-2.0); EOSINOPHIL # 0.6 TH/MM3 (0-0.4); EOSINOPHIL % 7.2 % (0.0-4.0); HEMATOCRIT 41.8 % (39.0-51.0); HEMO FLAGS DIFF FINAL; LYMPH % 18.9 % (9.0-44.0); LYMPHOCYTE # 1.6 TH/MM3 (1.0-4.8); MEAN CELL VOLUME 91.5 FL (80.0-100.0); MEAN CORPUSCULAR HEMOGLOBIN 29.6 PG (27.0-34.0); MEAN CORPUSCULAR HGB CONC 32.4 % (32.0-36.0); MONO % 14.5 % (0.0-8.0); NEUT % 58.8 % (16.0-70.0); PLATELET COUNT 165 TH/MM3 (150-450); RED BLOOD COUNT 4.57 MIL/MM3 (4.50-5.90); RED CELL DISTRIBUTION WIDTH 12.8 % (11.6-17.2); WHITE BLOOD COUNT 8.7 TH/MM3 (4.0-11.0)
[2016-11-09 07:24] LABS: BICARBONATE 24.7 MEQ/L (21.0-32.0)
[2016-11-09] MEDS: ONDANSETRON HCL 4 MG/2 ML VIAL IVP PRN ×2 (07:27→18:08)
--- NOTE | 2016-11-09 07:47 | HHI.PR ---
Subjective Remarks This is a pleasant 36 y/o male who came to ER with Right arm redness swelling and pain, reported that woke up with this symptoms yesterday morning, getting worse, as a constant pain, worse with flexion, Associated with nausea, vomiting yesterday and today, as well as chills. 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 He doesn't recall any specific instance of being poked in his right arm but he does know that he was poked several times. He vehemently denies any IV drug abuse and says that he has never used any IV drugs. Last tetanus vaccination approximate 7 years ago. the patient states he started with this symptomatology and took some Amoxicillin that he had at home. 11/09 patient stable seen with nurse Miss Novoa he has indurated edema, asked for wound care wound culture growth MRSA positive bacteria, his Blood culture is negative will follow. Objective Vital Signs Date Time Temp Pulse Resp B/P Pulse Ox O2 Delivery O2 Flow Rate FiO2 11/09/16 04:36 65 142/73 98 11/09/16 03:53 18 11/09/16 00:07 76 117/58 94 11/08/16 19:09 98.0 88 20 127/77 11/08/16 15:25 88 16 123/68 96 Room Air 11/08/16 11:42 98.0 100 20 141/89 97 Room Air Result Diagram: 11/09/16 0555 11/09/16 0555 Imaging Last Impressions Upper Extremity CT 11/08/16 0000 Signed Impressions: Service Date/Time: October 13:28 - CONCLUSION: Soft tissue swelling with a focal fluid collection at the proximal lateral deep subcutaneous fat adjacent to the proximal aspect of the extensor musculature likely representing a 3.7 cm abscess. Papito Mejia MD Radius/Ulna X-Ray 11/08/16 0000 Signed Impressions: Service Date/Time: October 12:31 - CONCLUSION: Soft tissue swelling. A bony abnormality is not seen. Papito Mejia MD Procedures Status post I and D. Other Results Laboratory Tests Test 11/08/16 11/09/16 12:20 05:55 Prothrombin Time 9.8 SEC Prothromb Time International 0.9 RATIO Ratio Activated Partial 28.6 SEC Thromboplast Time Lactic Acid Level 1.8 mmol/L Magnesium Level 2.0 MG/DL Total Bilirubin 0.5 MG/DL Aspartate Amino Transf 25 U/L (AST/SGOT) Alanine Aminotransferase 50 U/L (ALT/SGPT) Alkaline Phosphatase 84 U/L Total Protein 7.5 GM/DL Albumin 3.5 GM/DL White Blood Count 8.7 TH/MM3 Red Blood Count 4.57 MIL/MM3 Hemoglobin 13.5 GM/DL Hematocrit 41.8 % Mean Corpuscular Volume 91.5 FL Mean Corpuscular Hemoglobin 29.6 PG Mean Corpuscular Hemoglobin 32.4 % Concent Red Cell Distribution Width 12.8 % Platelet Count 165 TH/MM3 Mean Platelet Volume 9.6 FL Neutrophils (%) (Auto) 58.8 % Lymphocytes (%) (Auto) 18.9 % Monocytes (%) (Auto) 14.5 % Eosinophils (%) (Auto) 7.2 % Basophils (%) (Auto) 0.6 % Neutrophils # (Auto) 5.1 TH/MM3 Lymphocytes # (Auto) 1.6 TH/MM3 Monocytes # (Auto) 1.3 TH/MM3 Eosinophils # (Auto) 0.6 TH/MM3 Basophils # (Auto) 0.1 TH/MM3 CBC Comment DIFF FINAL Differential Comment Sodium Level 139 MEQ/L Potassium Level 4.0 MEQ/L Chloride Level 106 MEQ/L Carbon Dioxide Level 24.7 MEQ/L Anion Gap 8 MEQ/L Blood Urea Nitrogen 7 MG/DL Creatinine 0.83 MG/DL Estimat Glomerular Filtration 106 ML/MIN Rate Random Glucose 86 MG/DL Calcium Level 8.1 MG/DL Objective Remarks GENERAL: Well-developed well-nourished male in no acute distress SKIN: Indurated edema on the Right distal, external arm, no erythema, wound draining serous material no purulent tissue. HEAD: Atraumatic. Normocephalic. EYES: Pupils equal and round. No scleral icterus. No injection or drainage. ENT: No nasal bleeding or discharge. Mucous membranes pink and moist. NECK: Trachea midline. No JVD. CARDIOVASCULAR: Regular rate and rhythm. No murmur appreciated. RESPIRATORY: No accessory muscle use. Clear to auscultation. Breath sounds equal bilaterally. GASTROINTESTINAL: Abdomen soft, non-tender, nondistended. Hepatic and splenic margins not palpable. MUSCULOSKELETAL: right arm with packed wound, indurated area NEUROLOGICAL: Awake and alert. No obvious cranial nerve deficits. Motor grossly within normal limits. Normal speech. Medications and IVs Current Medications Medications (Trade) Dose Ordered Sig/[facility] Route Start Time Stop Time Status Last Admin Alprazolam 1 mg 1 mg Q6H PRN PO 11/08/16 16:00 (NS 1000 ml Inj) 1,000 ml @ 100 mls/hr Q10H IV 11/08/16 15:51 11/09/16 04:31 (NS Flush) 2 ml UNSCH PRN FLUSH 11/08/16 16:00 (NS Flush) 2 ml BID FLUSH 11/08/16 21:00 (Tylenol) 650 mg Q4H PRN PO 11/08/16 16:00 (Zofran Inj) 4 mg Q6H PRN IVP 11/08/16 16:00 11/09/16 07:27 (Dulcolax Supp) [address] 11/08/16 16:00 (Colace) 100 mg Q12H PO 11/08/16 16:00 11/08/16 16:26 (Lovenox Inj) 40 mg Q24H SQ 11/08/16 17:00 11/08/16 16:27 (Narcan Inj) 0.4 mg UNSCH PRN IV 11/08/16 16:00 Acetaminophen/ Hydrocodone Bitart 1 tab 1 tab Q4H PRN PO 11/08/16 16:15 11/09/16 07:26 Cefazolin Sodium/ Dextrose 50 ml @ 100 mls/hr Q8H IV 11/08/16 21:00 11/09/16 04:31 (Cleocin Inj/NS Inj) 104 ml @ 208 mls/hr Q8H IV 11/08/16 22:00 11/09/16 05:23 A/P Problem List: (1) Right arm cellulitis ICD Code: L03.113 (2) Cutaneous abscess of right upper extremity ICD Code: L02.413 Assessment and Plan 1. Cellulitis and abscess of the right arm status post I and D, today growing MRSA recommended for Vancomycin and Pharmacy following. blood cultures negative. 2. Anxiety disorder by history 3. Depression by history 4. Hypertension controlled on no anti Hypertensives. 5. hepatitis C by history 6. Seizure disorder DVT prophylaxis with Lovenox Discussed with patient in the presence of nurse Miss Novoa and all questions answered to the best of my abilities. Code Status Full Code Discharge Planning Expected in two days. Paul Burroughs MD Nov 09, 2016 07:47
[2016-11-09] MEDS: SODIUM CHLORIDE 0.9% FLUSH 5 ML FLUSH FLUSH SCH ×2 (10:20→21:00)
[2016-11-09] MEDS: ALPRAZolam 1 MG TAB PO PRN ×2 (12:09→19:42)
--- NOTE | 2016-11-09 14:29 | MB ---
cc: RAHEEM CARY III, M.D. DATE OF CONSULTATION: 11/09/2016 HISTORY OF PRESENT ILLNESS The patient is a right hand dominant 36-year-old male with a four or five day history of an abscess to the right forearm. He is status post incision and drainage by the PA in the emergency room yesterday and had improved. PAST MEDICAL HISTORY 1. Anxiety. 2. Depression. 3. Hypertension. 4. Diverticulitis. 5. Hepatitis C. 6. Seizures. PAST SURGICAL HISTORY Sinus surgery. SOCIAL HISTORY He smokes a half pack a day. Drinks alcohol occasionally. ALLERGIES No known drug allergies. MEDICATIONS Hydrocortisone topical cream. Here he is on clindamycin, Ancef, Lovenox, pain medicine, Xanax, Zofran. REVIEW OF SYSTEMS The patient is not complaining of any headaches, blurry or double vision. He is not complaining of any spine, neck or back pain. He is not complaining of any coughing, wheezing, shortness breath. He is not complaining of any nausea, vomiting or abdominal pain. He is not complaining of any burning, frequency or urgency with urination. He is not complaining of any lesions, rashes or eruptions on the skin. He is not complaining of any night sweats, fevers or chills. He is not complaining of any anxiety, depression or suicidal ideation. IMAGING He had x-rays done yesterday which reveal soft tissue swelling in the trochlear region with no fracture, foreign bodies or dislocations. An upper extremity CT was done which revealed soft tissue swelling with local fluid collection at the proximal lateral deep subcutaneous fat adjacent to the proximal aspect of the extensor musculature. LABORATORY DATA Gram stain was performed and reveals moderate wbc's, gram-positive cocci in pairs and clusters. White blood cell count 13.4, down to 8.7 today. PHYSICAL EXAMINATION GENERAL: The patient is well-developed, well-nourished, in no apparent distress. VITAL SIGNS: Temperature 97.7, heart rate 72, respiratory rate 14, blood pressure 137/87, pulse ox 97%. RIGHT UPPER EXTREMITY: There is a 2 cm incision overlying the abscess at the proximal radial forearm. There is no further purulence expressible. I removed the packing and repacked it with 1/4 inch Iodoform packing. He is neurovascularly intact throughout. There is minimal induration and no cellulitis in the area any longer. There is minimal erythema. There is just some edema of the skin in the area of the abscess. NEUROLOGIC: He is awake, alert and oriented x3. He is walking around his room comfortably. He is very pleasant. IMPRESSION Right forearm abscess, status post incision and drainage. RECOMMENDATIONS It is okay to change him to oral antibiotics and discharge him home. Follow-up with his primary doctor or back to the emergency room. If this condition worsens then he is to be seen in my office. Recommend packing changes 3-4 times a day. I showed the patient how to do these with the nurse in the room. Soap and water to the wound multiple times a day as well and as stated oral antibiotics for 7-10 days. MD KIRTI Anton III/JEFFREY /1:26 PM /2:01 PM
[2016-11-09] MEDS ORDERED: Vancomycin Consult Pharmacy 1 EA OTHER SCH (15:45)
[2016-11-09] MEDS: ENOXAPARIN SODIUM 40 MG/0.4 ML SYRINGE SQ SCH (17:41)
[2016-11-09] MEDS: VANCOMYCIN INJ 1,250 MG in SODIUM CHLOR 0.9% 250 ML INJ 250 ML IV SCH (17:42)
[2016-11-10 03:33] VITALS: BP 121/73; PULSE 67; O2SAT 94
[2016-11-10] MEDS: VANCOMYCIN INJ 1,250 MG in SODIUM CHLOR 0.9% 250 ML INJ 250 ML IV SCH ×2 (04:32→17:27)
[2016-11-10] MEDS: DOCUSATE SODIUM 100 MG CAP PO SCH ×2 (04:32→16:00)
[2016-11-10] MEDS: CLINDAMYCIN INJ 600 MG in SODIUM CHLORIDE 0.9% INJ 100 ML IV SCH ×3 (05:43→21:43)
[2016-11-10] MEDS: ALPRAZolam 1 MG TAB PO PRN ×3 (06:16→20:23)
[2016-11-10] MEDS: ACETAMINOPHEN/HYDROcodone 325 MG/5 MG TAB PO PRN ×3 (06:16→20:24)
[2016-11-10] MEDS: ONDANSETRON HCL 4 MG/2 ML VIAL IVP PRN ×2 (06:16→13:24)
[2016-11-10 08:13] VITALS: BP 134/69; PULSE 64; RESP 20; TEMP 97.2
[2016-11-10] MEDS: SODIUM CHLOR 0.9% 1000 ML INJ 1,000 ML IV SCH ×2 (09:43→17:51)
[2016-11-10] MEDS: SODIUM CHLORIDE 0.9% FLUSH 5 ML FLUSH FLUSH SCH ×2 (09:43→20:30)
[2016-11-10 11:53] VITALS: BP 139/85; PULSE 64; RESP 17; TEMP 98.1; O2SAT 97
--- NOTE | 2016-11-10 14:06 | HHI.PR ---
Subjective Remarks This is a pleasant 36 y/o male who came to ER with Right arm redness swelling and pain, reported that woke up with this symptoms yesterday morning, getting worse, as a constant pain, worse with flexion, Associated with nausea, vomiting yesterday and today, as well as chills. 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 He doesn't recall any specific instance of being poked in his right arm but he does know that he was poked several times. He vehemently denies any IV drug abuse and says that he has never used any IV drugs. Last tetanus vaccination approximate 7 years ago. the patient states he started with this symptomatology and took some Amoxicillin that he had at home. 11/09 patient stable seen with nurse Miss Novoa he has indurated edema, asked for wound care wound culture growth MRSA positive bacteria, his Blood culture is negative will follow. 11/10 Stable in his bedroom in the presence of nurse Miss Novoa, his wound seen is improving fast with management, his wound culture positive for MRSA sensitive to Bactrim if continue improving like now he will be able to be discharged tomorrow morning, his blood culture is negative. asking for Nicotine Patch placed. also will culture nares. Objective Vital Signs Date Time Temp Pulse Resp B/P Pulse Ox O2 Delivery O2 Flow Rate FiO2 11/10/16 11:53 98.1 64 17 139/85 97 11/10/16 08:13 97.2 64 20 134/69 11/10/16 03:33 67 121/73 94 11/09/16 23:46 18 11/09/16 23:20 96.7 76 139/90 95 11/09/16 20:00 97.6 78 18 142/78 92 11/09/16 15:50 98.1 75 14 126/77 95 Result Diagram: 11/09/16 0555 11/10/16 1140 Imaging Last Impressions Upper Extremity CT 11/08/16 0000 Signed Impressions: Service Date/Time: October 13:28 - CONCLUSION: Soft tissue swelling with a focal fluid collection at the proximal lateral deep subcutaneous fat adjacent to the proximal aspect of the extensor musculature likely representing a 3.7 cm abscess. Papito Mejia MD Radius/Ulna X-Ray 11/08/16 0000 Signed Impressions: Service Date/Time: October 12:31 - CONCLUSION: Soft tissue swelling. A bony abnormality is not seen. Papito Mejia MD Procedures Status post I and D. Other Results Laboratory Tests Test 11/08/16 11/09/16 11/10/16 12:20 05:55 11:40 Prothrombin Time 9.8 SEC Prothromb Time International 0.9 RATIO Ratio Activated Partial 28.6 SEC Thromboplast Time Lactic Acid Level 1.8 mmol/L Magnesium Level 2.0 MG/DL Total Bilirubin 0.5 MG/DL Aspartate Amino Transf 25 U/L (AST/SGOT) Alanine Aminotransferase 50 U/L (ALT/SGPT) Alkaline Phosphatase 84 U/L Total Protein 7.5 GM/DL Albumin 3.5 GM/DL White Blood Count 8.7 TH/MM3 Red Blood Count 4.57 MIL/MM3 Hemoglobin 13.5 GM/DL Hematocrit 41.8 % Mean Corpuscular Volume 91.5 FL Mean Corpuscular Hemoglobin 29.6 PG Mean Corpuscular Hemoglobin 32.4 % Concent Red Cell Distribution Width 12.8 % Platelet Count 165 TH/MM3 Mean Platelet Volume 9.6 FL Neutrophils (%) (Auto) 58.8 % Lymphocytes (%) (Auto) 18.9 % Monocytes (%) (Auto) 14.5 % Eosinophils (%) (Auto) 7.2 % Basophils (%) (Auto) 0.6 % Neutrophils # (Auto) 5.1 TH/MM3 Lymphocytes # (Auto) 1.6 TH/MM3 Monocytes # (Auto) 1.3 TH/MM3 Eosinophils # (Auto) 0.6 TH/MM3 Basophils # (Auto) 0.1 TH/MM3 CBC Comment DIFF FINAL Differential Comment Sodium Level 139 MEQ/L Potassium Level 4.0 MEQ/L Chloride Level 106 MEQ/L Carbon Dioxide Level 24.7 MEQ/L Anion Gap 8 MEQ/L Blood Urea Nitrogen 7 MG/DL Random Glucose 86 MG/DL Calcium Level 8.1 MG/DL Creatinine 0.88 MG/DL Estimat Glomerular Filtration 99 ML/MIN Rate Objective Remarks GENERAL: Well-developed well-nourished male in no acute distress SKIN: Indurated edema on the Right distal, external arm, no erythema, wound draining serous material no purulent tissue. HEAD: Atraumatic. Normocephalic. EYES: Pupils equal and round. No scleral icterus. No injection or drainage. ENT: No nasal bleeding or discharge. Mucous membranes pink and moist. NECK: Trachea midline. No JVD. CARDIOVASCULAR: Regular rate and rhythm. No murmur appreciated. RESPIRATORY: No accessory muscle use. Clear to auscultation. Breath sounds equal bilaterally. GASTROINTESTINAL: Abdomen soft, non-tender, nondistended. Hepatic and splenic margins not palpable. MUSCULOSKELETAL: right arm with packed wound, indurated area Improving NEUROLOGICAL: Awake and alert. No obvious cranial nerve deficits. Motor grossly within normal limits. Normal speech. Medications and IVs Current Medications Medications (Trade) Dose Ordered Sig/[facility] Route Start Time Stop Time Status Last Admin Alprazolam 1 mg 1 mg Q6H PRN PO 11/08/16 16:00 11/10/16 13:25 (NS 1000 ml Inj) 1,000 ml @ 100 mls/hr Q10H IV 11/08/16 15:51 11/10/16 09:43 (NS Flush) 2 ml UNSCH PRN FLUSH 11/08/16 16:00 (NS Flush) 2 ml BID FLUSH 11/08/16 21:00 11/10/16 09:43 (Tylenol) 650 mg Q4H PRN PO 11/08/16 16:00 (Zofran Inj) 4 mg Q6H PRN IVP 11/08/16 16:00 11/10/16 13:24 (Dulcolax Supp) 10 mg DAILY PRN [place] 11/08/16 16:00 (Colace) 100 mg Q12H PO 11/08/16 16:00 11/10/16 04:32 (Lovenox Inj) 40 mg Q24H SQ 11/08/16 17:00 11/09/16 17:41 (Narcan Inj) 0.4 mg UNSCH PRN IV 11/08/16 16:00 Acetaminophen/ Hydrocodone Bitart 1 tab 1 tab Q4H PRN PO 11/08/16 16:15 11/10/16 13:25 Clindamycin Phosphate 600 mg/ Sodium Chloride 104 ml @ 208 mls/hr Q8H IV 11/08/16 22:00 11/10/16 13:35 Vancomycin HCl 1250 mg/Sodium Chloride 262.5 ml @ 262.5 mls/ hr Q12H IV 11/09/16 17:00 11/10/16 04:32 (Vancomycin Consult Pharmacy) 0 ml @ 0 mls/hr UNSCH OTHER 11/09/16 15:45 Miscellaneous Information SPECIFIC LAB TO BE SHILPA... ONCE ONCE XX 11/11/16 04:45 11/11/16 04:46 (Habitrol 21 Mg Patch.24 Hr) 1 patch DAILY TD 11/10/16 13:30 Miscellaneous Information 1 HS TD 11/10/16 21:00 A/P Problem List: (1) Right arm cellulitis ICD Code: L03.113 (2) Cutaneous abscess of right upper extremity ICD Code: L02.413 Assessment and Plan 1. Cellulitis and abscess of the right arm status post I and D, today growing MRSA recommended for Vancomycin and Pharmacy following. blood cultures negative. continue present care he is improving will follow in am tomorrow. 2. Anxiety disorder by history 3. Depression by history 4. Hypertension controlled on no anti Hypertensives. 5. hepatitis C by history 6. Seizure disorder 7. Tobacco dependence started Nicotine Patch DVT prophylaxis with Lovenox Discussed with patient in the presence of nurse Miss Novoa and all questions answered to the best of my abilities. Code Status Full Code Discharge Planning Expected for tomorrow. Paul Burroughs MD Nov 10, 2016 14:06
[2016-11-10] MEDS: NICOTINE 21 MG/24 HR PATCH TD SCH (14:56)
[2016-11-10 15:25] VITALS: BP 145/87; PULSE 62; RESP 18; TEMP 98; O2SAT 97
[2016-11-10] MEDS: ENOXAPARIN SODIUM 40 MG/0.4 ML SYRINGE SQ SCH (17:24)
[2016-11-10] MEDS ORDERED: REMOVE OLD NICODERM (NICOTINE) PATCH TD SCH (21:00)
[2016-11-10 21:18] VITALS: BP 158/91; PULSE 75; RESP 18; TEMP 98.1; O2SAT 96
[2016-11-11 00:31] VITALS: BP 153/92; PULSE 67; TEMP 97.8; O2SAT 97
[2016-11-11] MEDS: SODIUM CHLOR 0.9% 1000 ML INJ 1,000 ML IV SCH ×2 (03:51→06:13)
[2016-11-11] MEDS: DOCUSATE SODIUM 100 MG CAP PO SCH (04:00)
[2016-11-11 04:12] VITALS: BP 151/86; PULSE 69; RESP 18; TEMP 97.9; O2SAT 97
[2016-11-11] MEDS ORDERED: PHARMACY ORDERED LAB XX ONE (04:45)
[2016-11-11] MEDS: ACETAMINOPHEN/HYDROcodone 325 MG/5 MG TAB PO PRN ×2 (05:01→09:43)
[2016-11-11] MEDS: VANCOMYCIN INJ 1,250 MG in SODIUM CHLOR 0.9% 250 ML INJ 250 ML IV SCH (05:02)
[2016-11-11] MEDS: CLINDAMYCIN INJ 600 MG in SODIUM CHLORIDE 0.9% INJ 100 ML IV SCH (05:02)
[2016-11-11] MEDS: ONDANSETRON HCL 4 MG/2 ML VIAL IVP PRN ×2 (05:07→11:29)
[2016-11-11 06:14] LABS: VANCOMYCIN TROUGH 5.5 MCG/ML (5.0-10.0)
[2016-11-11] MEDS: NICOTINE 21 MG/24 HR PATCH TD SCH (07:41)
[2016-11-11] MEDS: SODIUM CHLORIDE 0.9% FLUSH 5 ML FLUSH FLUSH SCH (07:42)
[2016-11-11] MEDS: ALPRAZolam 1 MG TAB PO PRN (07:42)
--- NOTE | 2016-11-11 07:58 | HHI.PR ---
Subjective Remarks This is a pleasant 36 y/o male who came to ER with Right arm redness swelling and pain, reported that woke up with this symptoms yesterday morning, getting worse, as a constant pain, worse with flexion, Associated with nausea, vomiting yesterday and today, as well as chills. 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 He doesn't recall any specific instance of being poked in his right arm but he does know that he was poked several times. He vehemently denies any IV drug abuse and says that he has never used any IV drugs. Last tetanus vaccination approximate 7 years ago. the patient states he started with this symptomatology and took some Amoxicillin that he had at home. 11/09 patient stable seen with nurse Miss Novoa he has indurated edema, asked for wound care wound culture growth MRSA positive bacteria, his Blood culture is negative will follow. 11/10 Stable in his bedroom in the presence of nurse Miss Novoa, his wound seen is improving fast with management, his wound culture positive for MRSA sensitive to Bactrim if continue improving like now he will be able to be discharged tomorrow morning, his blood culture is negative. asking for Nicotine Patch placed. also will culture nares. 11/11 Patient stable in his bedroom improving his edema and induration, already recommended for discharge by Plastic Surgery/hand automotive sales specialist will discharge on Bactrim every 12 hours and follow with Plastic Surgery in 2 to 3 days. Objective Vital Signs Date Time Temp Pulse Resp B/P Pulse Ox O2 Delivery O2 Flow Rate FiO2 11/11/16 04:12 97.9 69 18 151/86 97 11/11/16 00:31 97.8 67 153/92 97 11/10/16 21:18 98.1 75 18 158/91 96 11/10/16 15:25 98.0 62 18 145/87 97 11/10/16 11:53 98.1 64 17 139/85 97 11/10/16 08:13 97.2 64 20 134/69 I/O 11/10/16 11/10/16 11/10/16 11/11/16 11/11/16 11/11/16 07:00 15:00 23:00 07:00 15:00 23:00 Intake Total 400 ml Balance 400 ml Intake IV Total 400 ml # Voids 1 Result Diagram: 11/09/16 0555 11/11/16 0430 Imaging Last Impressions Upper Extremity CT 11/08/16 0000 Signed Impressions: Service Date/Time: October 13:28 - CONCLUSION: Soft tissue swelling with a focal fluid collection at the proximal lateral deep subcutaneous fat adjacent to the proximal aspect of the extensor musculature likely representing a 3.7 cm abscess. Papito Mejia MD Radius/Ulna X-Ray 11/08/16 0000 Signed Impressions: Service Date/Time: October 12:31 - CONCLUSION: Soft tissue swelling. A bony abnormality is not seen. Papito Mejia MD Procedures Status post I and D. Other Results Laboratory Tests Test 11/08/16 11/09/16 11/11/16 12:20 05:55 04:30 Prothrombin Time 9.8 SEC Prothromb Time International 0.9 RATIO Ratio Activated Partial 28.6 SEC Thromboplast Time Lactic Acid Level 1.8 mmol/L Magnesium Level 2.0 MG/DL Total Bilirubin 0.5 MG/DL Aspartate Amino Transf 25 U/L (AST/SGOT) Alanine Aminotransferase 50 U/L (ALT/SGPT) Alkaline Phosphatase 84 U/L Total Protein 7.5 GM/DL Albumin 3.5 GM/DL White Blood Count 8.7 TH/MM3 Red Blood Count 4.57 MIL/MM3 Hemoglobin 13.5 GM/DL Hematocrit 41.8 % Mean Corpuscular Volume 91.5 FL Mean Corpuscular Hemoglobin 29.6 PG Mean Corpuscular Hemoglobin 32.4 % Concent Red Cell Distribution Width 12.8 % Platelet Count 165 TH/MM3 Mean Platelet Volume 9.6 FL Neutrophils (%) (Auto) 58.8 % Lymphocytes (%) (Auto) 18.9 % Monocytes (%) (Auto) 14.5 % Eosinophils (%) (Auto) 7.2 % Basophils (%) (Auto) 0.6 % Neutrophils # (Auto) 5.1 TH/MM3 Lymphocytes # (Auto) 1.6 TH/MM3 Monocytes # (Auto) 1.3 TH/MM3 Eosinophils # (Auto) 0.6 TH/MM3 Basophils # (Auto) 0.1 TH/MM3 CBC Comment DIFF FINAL Differential Comment Sodium Level 139 MEQ/L Potassium Level 4.0 MEQ/L Chloride Level 106 MEQ/L Carbon Dioxide Level 24.7 MEQ/L Anion Gap 8 MEQ/L Blood Urea Nitrogen 7 MG/DL Random Glucose 86 MG/DL Calcium Level 8.1 MG/DL Creatinine 0.77 MG/DL Estimat Glomerular Filtration 116 ML/MIN Rate Vancomycin Level Trough 5.5 MCG/ML Objective Remarks GENERAL: Well-developed well-nourished male in no acute distress SKIN: Indurated edema on the Right distal, external arm, no erythema, wound draining serous material no purulent tissue. HEAD: Atraumatic. Normocephalic. EYES: Pupils equal and round. No scleral icterus. No injection or drainage. ENT: No nasal bleeding or discharge. Mucous membranes pink and moist. NECK: Trachea midline. No JVD. CARDIOVASCULAR: Regular rate and rhythm. No murmur appreciated. RESPIRATORY: No accessory muscle use. Clear to auscultation. Breath sounds equal bilaterally. GASTROINTESTINAL: Abdomen soft, non-tender, nondistended. Hepatic and splenic margins not palpable. MUSCULOSKELETAL: right arm with Right arm wound unpacked today, small open area after procedure. NEUROLOGICAL: Awake and alert. No obvious cranial nerve deficits. Motor grossly within normal limits. Normal speech. Medications and IVs Current Medications Medications (Trade) Dose Ordered Sig/[facility] Route Start Time Stop Time Status Last Admin (Xanax) 1 mg Q6H PRN PO 11/08/16 16:00 11/11/16 07:42 (NS Flush) 2 ml UNSCH PRN FLUSH 11/08/16 16:00 11/11/16 05:07 (NS Flush) 2 ml BID FLUSH 11/08/16 21:00 11/10/16 09:43 (Tylenol) 650 mg Q4H PRN PO 11/08/16 16:00 (Zofran Inj) 4 mg Q6H PRN IVP 11/08/16 16:00 11/11/16 05:07 (Dulcolax Supp) 10 mg DAILY PRN [place] 11/08/16 16:00 (Colace) 100 mg Q12H PO 11/08/16 16:00 11/10/16 04:32 (Lovenox Inj) 40 mg Q24H SQ 11/08/16 17:00 11/10/16 17:24 (Narcan Inj) 0.4 mg UNSCH PRN IV 11/08/16 16:00 Acetaminophen/ Hydrocodone Bitart 1 tab 1 tab Q4H PRN PO 11/08/16 16:15 11/11/16 05:01 Clindamycin Phosphate 600 mg/ Sodium Chloride 104 ml @ 208 mls/hr Q8H IV 11/08/16 22:00 11/11/16 05:02 Vancomycin HCl 1250 mg/Sodium Chloride 262.5 ml @ 262.5 mls/ hr Q12H IV 11/09/16 17:00 11/11/16 05:02 (Vancomycin Consult Pharmacy) 0 ml @ 0 mls/hr UNSCH OTHER 11/09/16 15:45 (Habitrol 21 Mg Patch.24 Hr) 1 patch DAILY TD 11/10/16 13:30 11/11/16 07:41 Miscellaneous Information 1 HS TD 11/10/16 21:00 A/P Problem List: (1) Right arm cellulitis ICD Code: L03.113 (2) Cutaneous abscess of right upper extremity ICD Code: L02.413 Assessment and Plan 1. Cellulitis and abscess of the right arm status post I and D, today growing MRSA recommended for Vancomycin and Pharmacy following. blood cultures negative No BSI, will discharge on Bactrim for 10 days explained not to drink alcohol along with antibiotics. follow with academic guidance specialist. 2. Anxiety disorder by history 3. Depression by history 4. Hypertension Mild uncontrol he will need to follow with PCP. 5. hepatitis C by history 6. Seizure disorder 7. Tobacco dependence started Nicotine Patch and will continue as outpatient. DVT prophylaxis with Lovenox Discussed with patient in the presence of nurse almodovar to discharge Home and wound care been explained to the patient Code Status Full Code Discharge Planning Discharge today and follow with Plastic Surgery in 2 to 3 days. Paul Burroughs MD Nov 11, 2016 07:58
[2016-11-11 08:16] VITALS: BP 150/97; PULSE 60; RESP 18; TEMP 97.6; O2SAT 98
[2016-11-11] MEDS ORDERED: NICO21DI2 TD (10:53)
[2016-11-11] MEDS ORDERED: BACT800T5 PO (10:53)
[2016-11-11] MEDS ORDERED: HYDR-3516 PO (10:53)
--- NOTE | 2016-11-11 12:15 | HHI.DS ---
Discharge Summary Admission Date Nov 08, 2016 at 15:53 Discharge Date: Nov 11, 2016 Admitting Diagnosis Right Arm Abscess/Cellulitis (1) Right arm cellulitis ICD Code: L03.113 Diagnosis: Principal Procedures Status post I and D. Brief History - From Admission This is a pleasant 36 y/o male who came to ER with Right arm redness swelling and pain, reported that woke up with this symptoms yesterday morning, getting worse, as a constant pain, worse with flexion, Associated with nausea, vomiting yesterday and today, as well as chills. 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 He doesn't recall any specific instance of being poked in his right arm but he does know that he was poked several times. He vehemently denies any IV drug abuse and says that he has never used any IV drugs. Last tetanus vaccination approximate 7 years ago. the patient states he started with this symptomatology and took some Amoxicillin that he had at home. CBC/BMP: 11/09/16 0555 11/11/16 0430 Significant Findings Laboratory Tests Test 11/08/16 11/09/16 12:20 05:55 White Blood Count 13.4 TH/MM3 (4.0-11.0) Neutrophils (%) (Auto) 74.1 % (16.0-70.0) Monocytes (%) (Auto) 12.5 % 14.5 % (0.0-8.0) (0.0-8.0) Neutrophils # (Auto) 10.0 TH/MM3 (1.8-7.7) Monocytes # (Auto) 1.7 TH/MM3 1.3 TH/MM3 (0-0.9) (0-0.9) Eosinophils # (Auto) 0.5 TH/MM3 0.6 TH/MM3 (0-0.4) (0-0.4) Sodium Level 134 MEQ/L (136-145) Random Glucose 107 MG/DL (74-106) Eosinophils (%) (Auto) 7.2 % (0.0-4.0) Calcium Level 8.1 MG/DL (8.5-10.1) Imaging Last Impressions Upper Extremity CT 11/08/16 0000 Signed Impressions: Service Date/Time: October 13:28 - CONCLUSION: Soft tissue swelling with a focal fluid collection at the proximal lateral deep subcutaneous fat adjacent to the proximal aspect of the extensor musculature likely representing a 3.7 cm abscess. Papito Mejia MD Radius/Ulna X-Ray 11/08/16 0000 Signed Impressions: Service Date/Time: October 12:31 - CONCLUSION: Soft tissue swelling. A bony abnormality is not seen. Papito Mejia MD PE at Discharge GENERAL: Well-developed well-nourished male in no acute distress SKIN: Indurated edema on the Right distal, external arm, no erythema, wound draining serous material no purulent tissue. HEAD: Atraumatic. Normocephalic. EYES: Pupils equal and round. No scleral icterus. No injection or drainage. ENT: No nasal bleeding or discharge. Mucous membranes pink and moist. NECK: Trachea midline. No JVD. CARDIOVASCULAR: Regular rate and rhythm. No murmur appreciated. RESPIRATORY: No accessory muscle use. Clear to auscultation. Breath sounds equal bilaterally. GASTROINTESTINAL: Abdomen soft, non-tender, nondistended. Hepatic and splenic margins not palpable. MUSCULOSKELETAL: right arm with Right arm wound unpacked today, small open area after procedure. NEUROLOGICAL: Awake and alert. No obvious cranial nerve deficits. Motor grossly within normal limits. Normal speech. Hospital Course This is a pleasant 36 y/o male who came to ER with Right arm redness swelling and pain, reported that woke up with this symptoms yesterday morning, getting worse, as a constant pain, worse with flexion, Associated with nausea, vomiting yesterday and today, as well as chills. 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 He doesn't recall any specific instance of being poked in his right arm but he does know that he was poked several times. He vehemently denies any IV drug abuse and says that he has never used any IV drugs. Last tetanus vaccination approximate 7 years ago. the patient states he started with this symptomatology and took some Amoxicillin that he had at home. 11/09 patient stable seen with nurse Miss Alejoriela he has indurated edema, asked for wound care wound culture growth MRSA positive bacteria, his Blood culture is negative will follow. 11/10 Stable in his bedroom in the presence of nurse Miss Novoa, his wound seen is improving fast with management, his wound culture positive for MRSA sensitive to Bactrim if continue improving like now he will be able to be discharged tomorrow morning, his blood culture is negative. asking for Nicotine Patch placed. also will culture nares. 11/11 Patient stable in his bedroom improving his edema and induration, already recommended for discharge by Plastic Surgery/hand mailing specialist will discharge on Bactrim every 12 hours and follow with Plastic Surgery in 2 to 3 days. Assessment and Plan 1. Cellulitis and abscess of the right arm status post I and D, today growing MRSA recommended for Vancomycin and Pharmacy following. blood cultures negative No BSI, will discharge on Bactrim for 10 days explained not to drink alcohol along with antibiotics. follow with content development specialist. 2. Anxiety disorder by history 3. Depression by history 4. Hypertension Mild uncontrol he will need to follow with PCP. 5. hepatitis C by history 6. Seizure disorder 7. Tobacco dependence started Nicotine Patch and will continue as outpatient. DVT prophylaxis with Lovenox Discussed with patient in the presence of nurse almodovar to discharge Home and wound care been explained to the patient Code Status Full Code Discharge Planning Discharge today and follow with Plastic Surgery in 2 to 3 days. Pt Condition on Discharge: Good Discharge Disposition: Discharge Home Discharge Time: <= 30 minutes Discharge Instructions DIET: Follow Instructions for: As Tolerated, No Restrictions Activities you can perform: Regular-No Restrictions Paul Burroughs MD Nov 11, 2016 12:15
[2016-11-11] MEDS ORDERED: VANCOMYCIN INJ 1,500 MG in SODIUM CHLORID 0.9% 500 ML INJ 500 ML IV SCH (17:00)
[2016-11-13] MEDS ORDERED: PHARMACY ORDERED LAB XX ONE ×2 (04:45)
== END 2016-11-11 11:59 | disposition home or self-care (01) ==
LOC: NEPE 11:41 → NEDA 15:53 → NEPGCP 18:29
PROVIDERS: ADMIT Internal Medicine; ATTEND Internal Medicine
DX: L03.113 Cellulitis of right upper limb (principal); L02.413 Cutaneous abscess of right upper limb; I10 Essential (primary) hypertension; G40.909 Epilepsy, unspecified, not intractable, without status epilepticus; F10.10 Alcohol abuse, uncomplicated; F17.210 Nicotine dependence, cigarettes, uncomplicated; Z79.01 Long term (current) use of anticoagulants
CPT/HCPCS: 10061; 73090; 73201; 80048; 80053; 80202; 82565; 83605; 83735; 85025; 85610; 85730; 87040; 87070; 87081; 87205; 90471; 90714; 96365; 96367; 96375; 99285; G0378; J0690; J1650; J1885; J2270; J2405; J3370; J7030; J7050; Q9967

== ENCOUNTER 2016-11-24 01:28 | Emergency (ER) | payer SELFPAY ==
[~2016-11-24] VITALS: Ht 241.3 cm; Wt 82.7 kg
[~2016-11-24 01:28] MED LIST changes: +BACT800T5 PO; +HYDR-3516 PO; -HYDR1CRE TOPICAL; +NICO21DI2 TD; +XANA1TAB2 PO
[2016-11-24 01:35] VITALS: BP 150/74; PULSE 115; RESP 24; TEMP 97.4; O2SAT 93
[2016-11-24 01:45] VITALS: TEMP 98.3
[2016-11-24] MEDS ORDERED: ACETAMINOPHEN/HYDROcodone 325 MG/5 MG TAB PO ONE (02:15)
[2016-11-24] MEDS ORDERED: HYDR-3533 PO (02:31)
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
[2016-11-24] MEDS ORDERED: PERC7.5T13 PO (03:43)
[2016-11-24] MEDS ORDERED: ACETAMINOPHEN/HYDROcodone 325 MG/7.5 MG TAB PO ONE (04:00)
[2016-11-24] MEDS ORDERED: KETOROLAC TROMETHAMINE 60 MG/2 ML (IM) VIAL IM ONE (04:00)
[2016-11-24 04:30] VITALS: BP 118/88
== END 2016-11-24 06:59 | disposition home or self-care (01) ==
LOC: NEPC 01:28
DX: S20.212A Contusion of left front wall of thorax, initial encounter (principal); S00.83XA Contusion of other part of head, initial encounter; I10 Essential (primary) hypertension; F17.200 Nicotine dependence, unspecified, uncomplicated; Z86.59 Personal history of other mental and behavioral disorders; Z86.79 Personal history of other diseases of the circulatory system; Z87.19 Personal history of other diseases of the digestive system; Z86.19 Personal history of other infectious and parasitic diseases; Z87.09 Personal history of other diseases of the respiratory system; Z86.69 Personal history of other diseases of the nervous system and sense organs; Y04.2XXA Assault by strike against or bumped into by another person, initial encounter
CPT/HCPCS: 71101; 96372; 99283; J1885

== ENCOUNTER 2017-01-09 01:28 | Inpatient (IN) | payer SELFPAY ==
[2017-01-09] VITALS (12 sets, daily range): BP systolic 142–206; BP diastolic 85–112; PULSE 85–156; RESP 18–32; TEMP 97.7–98.2; O2SAT 96–100
[~2017-01-09] VITALS: Ht 180.3 cm; Wt 82.9 kg
[~2017-01-09 01:28] MED LIST changes: -BACT800T5 PO; -HYDR-3516 PO; -NICO21DI2 TD; +PERC7.5T13 PO
[2017-01-09] MEDS ORDERED: LORazepam 2 MG/ML VIAL IV PUSH ONE ×3 (02:30→03:30)
[2017-01-09] MEDS ORDERED: HALOPERIDOL LACTATE 5 MG/ML AMP IM ONE ×3 (02:30→04:00)
[2017-01-09 02:46] LABS: AUTOMATED NEUTROPHIL # 25.4 TH/MM3 (1.8-7.7); BASOPHIL # 0.3 TH/MM3 (0-0.2); BASOPHIL % 1.1 % (0.0-2.0); HEMATOCRIT 48.1 % (39.0-51.0); LYMPHOCYTE # 1.5 TH/MM3 (1.0-4.8); MEAN CELL VOLUME 88.7 FL (80.0-100.0); MEAN CORPUSCULAR HGB CONC 33.9 % (32.0-36.0); MONO % 7.7 % (0.0-8.0); NEUT % 86.2 % (16.0-70.0); PLATELET COUNT 331 TH/MM3 (150-450); RED BLOOD COUNT 5.42 MIL/MM3 (4.50-5.90); RED CELL DISTRIBUTION WIDTH 13.8 % (11.6-17.2); WHITE BLOOD COUNT 29.5 TH/MM3 (4.0-11.0)
[2017-01-09 02:59] LABS: HEMO FLAGS AUTO DIFF
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
[2017-01-09 03:16] LABS: SCAN/DIFF AUTO DIFF CONFIRMED
[2017-01-09] MEDS ORDERED: SODIUM CHLOR 0.9% 1000 ML INJ 1,000 ML IV ONE ×2 (03:30)
[2017-01-09 03:45] LABS: ALKALINE PHOSPHATASE 81 U/L (45-117); TOTAL BILIRUBIN ADULT 0.7 MG/DL (0.2-1.0)
[2017-01-09 03:55] LABS: ALT (GPT) 102 U/L (12-78); ANION GAP 15 MEQ/L (5-15); AST (GOT) 79 U/L (15-37); BICARBONATE 17.1 MEQ/L (21.0-32.0); BLOOD UREA NITROGEN 11 MG/DL (7-18); CHLORIDE 105 MEQ/L (98-107); GLOMERULAR FILTRATION RATE 57 ML/MIN (>89); SODIUM (NA) 137 MEQ/L (136-145)
[2017-01-09] MEDS ORDERED: THIAMINE INJ 100 MG in SODIUM CHLORIDE 0.9% INJ 100 ML IV ONE (04:00)
[2017-01-09 04:43] LABS: ACETAMINOPHEN LESS THAN 2.0 MCG/ML (10.0-30.0)
[2017-01-09 04:45] LABS: CREATINE KINASE 172 U/L (39-308)
--- NOTE | 2017-01-09 05:38 | RADRPT ---
EXAM DATE/TIME: 01/09/2017 05:18 [facility] COMPARISON: CT BRAIN W/O CONTRAST, September 06, 2016, 3:09. INDICATIONS : Altered mental status. RADIATION DOSE: 43.10 CTDIvol (mGy) MEDICAL HISTORY : Hypertension. Seizures. SURGICAL HISTORY : None. ENCOUNTER: Initial ACUITY: 1 day PAIN SCALE: 0/10 LOCATION: cranial TECHNIQUE: Multiple contiguous axial images were obtained of the head. Using automated exposure control and adj ustment of the mA and/or kV according to patient size, radiation dose was kept as low as reasonably a chievable to obtain optimal diagnostic quality images. FINDINGS: CEREBRUM: The ventricles are normal for age. No evidence of midline shift, mass lesion, hemorrhage or acute in farction. No extra-axial fluid collections are seen. POSTERIOR FOSSA: The cerebellum and brainstem are intact. The 4th ventricle is midline. The cerebellopontine angle i s unremarkable. EXTRACRANIAL: The visualized portion of the orbits is intact. SKULL: The calvaria is intact. No evidence of skull fracture. CONCLUSION: Stable negative noncontrast head CT. Jero Naqvi MD on January 09, 2017 at 5:36 Board Certified Radiologist. This report was verified electronically.
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
[2017-01-09 06:26] LABS: AMPHETAMINE, URINE POS (NEG); BARBITURATES, URINE NEG (NEG); COCAINE, URINE POS (NEG)
[2017-01-09 06:37] LABS: BLOOD, URINE NEG (NEG); COMMENT (UR) CULT NOT INDICATED; CULTURE IF INDICATED CULT NOT INDICATED; GLUCOSE,URINE 1000 mg/dL (NEG); HYALINE CAST, URINE 9 /lpf (RARE); KETONE, URINE 40 mg/dL (NEG); MUCUS URINE FEW /lpf (OCC); NITRITE,URINE NEG (NEG); PH, URINE 5.5 (5.0-8.5); URINE COLOR YELLOW (YELLW/STRAW)
[2017-01-09] MEDS ORDERED: ASPIRIN 81 MG CHEW TAB CHEW ONE (06:45)
[2017-01-09 07:00] LABS: BICARBONATE 23.2 MEQ/L (21.0-32.0); POTASSIUM 3.7 MEQ/L (3.5-5.1)
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
[2017-01-09] MEDS ORDERED: BISACODYL 10 MG SUPP RECTAL PRN (07:45)
[2017-01-09] MEDS ORDERED: KETOROLAC TROMETHAMINE 30 MG/ML (IVP) VIAL IVP PRN (07:45)
[2017-01-09] MEDS ORDERED: cloNIDine HCL 0.1 MG TAB PO PRN (07:45)
[2017-01-09] MEDS ORDERED: hydrALAZINE HCL 20 MG/ML VIAL IV PRN (07:45)
[2017-01-09] MEDS ORDERED: SODIUM CHLORIDE 0.9% FLUSH 10 ML FLUSH IV FLUSH PRN (07:45)
[2017-01-09] MEDS ORDERED: HALOPERIDOL LACTATE 5 MG/ML AMP IM PRN (07:45)
[2017-01-09] MEDS ORDERED: GLUCAGON 1 MG/ML VIAL OTHER PRN (07:45)
[2017-01-09] MEDS ORDERED: NALOXONE HCL 0.4 MG/ML AMP IV PRN (07:45)
[2017-01-09] MEDS ORDERED: ACETAMINOPHEN 325 MG TAB PO PRN (07:45)
[2017-01-09] MEDS ORDERED: DEXTROSE 50% IN WATER 50 ML VIAL(D50) IV PRN (07:45)
[2017-01-09] MEDS ORDERED: hydrOXYzine PAMOATE 25 MG CAP PO PRN (09:00)
[2017-01-09] MEDS: DOCUSATE SODIUM 100 MG CAP PO SCH ×2 (09:41→20:10)
[2017-01-09] MEDS: SODIUM CHLORIDE 0.9% FLUSH 10 ML FLUSH IV FLUSH SCH ×2 (09:41→20:10)
[2017-01-09] MEDS: cloNIDine HCL 0.1 MG TAB PO SCH ×2 (09:41→20:10)
--- NOTE | 2017-01-09 10:23 | EKG ---
Date Performed: 01/09/2017 Time Performed: 06:00:50 PTAGE: 36 years EKG: SINUS TACHYCARDIA ABNORMAL RHYTHM ECG PREVIOUS TRACING : 08/08/2011 01.27 DOCTOR: Maksim Covington Interpretating Date/Time 01/09/2017 10:18:41
--- NOTE | 2017-01-09 10:24 | EKG ---
Date Performed: 01/09/2017 Time Performed: 02:28:11 PTAGE: 36 years EKG: PROBABLE ATRIAL FLUTTER MODERATE ST DEPRESSION ABNORMAL ECG NO PREVIOUS TRACING DOCTOR: Maksim Covington Interpretating Date/Time 01/09/2017 10:19:56
[2017-01-09] MEDS: INSULIN ASPART SUPPLEMENTAL SCALE SQ SCH ×3 (11:00→20:10)
[2017-01-09 11:13] LABS: HEMOGLOBIN A1a 1.1 %; HEMOGLOBIN A1b 1.4 %; HEMOGLOBIN Ao 84.7 %; HEMOGLOBIN LA1C 3.2 %; HEMOGLOBIN P3 3.8 %
[2017-01-09] MEDS: LORazepam 2 MG/ML VIAL IV PUSH PRN ×2 (12:15→20:09)
[2017-01-09] MEDS: KETOROLAC TROMETHAMINE 30 MG/ML (IVP) VIAL IVP PRN ×2 (12:15→20:09)
--- NOTE | 2017-01-09 13:40 | PD.CONS ---
Provisional Diagnosis Admission Date January 09, 2017 at 07:23 [place] I. Substance induced psychosis, polysubstance dependence, including amphetamines, cocaine, benzodiazepines, cannabis [place] II. Deferred [place] III. Hypertension History of Present Illness Service Psychiatry Consult Requested By Primary Care Physician No Primary Care Physician HPI The patient is a 36-year-old man, domiciled with a roommate in [place], unemployed, , with psychiatric history of bipolar disorder, 2 previous psychiatric hospitalizations, the last hospitalization was back in 2010 in [facility], no previous suicidal attempts, no psychotropics, medical history of hypertension. He presents to the emergency Department by law enforcement for evaluation. Patient's chief complaint to triage was "everybody is out for me". He admits using marijuana last night and developed palpitations. He also saw suspicious people in the [facility] parking lot. In the emergency department, he appeared to be in the influence of some substance. He was paranoid, delusional and withdrawn. EMR shows that he has been evaluated multiple times for drug-induced psychosis and tested positive for cocaine. He was given several doses of Ativan total of 4 mg and 5 mg of Haldol and became sedated. At this time, he is alert and oriented 4. Patient consulted to psychiatry. On psychiatric evaluation today patient is following his room in the ER, patient is calm, cooperative and pleasant. At the beginning patient was denying using drugs. He stated that he didn't know what happened to him. However when he was confronted about positive toxicology, he admitted using this drugs "but it was just one time, and I am not going to do it again". At this moment patient reports good mood, denies anxiety, denies guilherme, denies perceptual disturbances, denies suicidal or homicidal ideation, denies visual and auditory hallucinations. No paranoia, no disorganized behavior, no tangentiality, no delusions, no fluctuation of consciousness, no agitation or aggressive behavior seems to be present at the moment of this evaluation. Patient is oriented 3. He reports occasional use of alcohol, he denies use of drugs. "I was just trying yesterday". Review of Systems Constitutional: DENIES: Diaphoretic episodes, Fatigue, Fever, Weight gain, Weight loss, Chills, Dizziness, Change in appetite, Night Sweats Endocrine: DENIES: Heat/cold intolerance, Polydipsia, Polyuria, Polyphagia Eyes: DENIES: Blurred vision, Diplopia, Eye inflammation, Eye pain, Vision loss , Photosensitivity, Double Vision Ears, nose, mouth, throat: DENIES: Tinnitus, Hearing loss, Vertigo, Nasal discharge, Oral lesions, Throat pain, Hoarseness, Ear Pain, Running Nose, Epistaxis, Sinus Pain, Toothache, Odynophagia Respiratory: DENIES: Apneas, Cough, Snoring, Wheezing, Hemoptysis, Sputum production, Shortness of breath Cardiovascular: DENIES: Chest pain, Palpitations, Syncope, Dyspnea on Exertion , PND, Lower Extremity Edema, Orthopnea, Claudication Gastrointestinal: DENIES: Abdominal pain, Black stools, Bloody stools, Constipation, Diarrhea, Nausea, Vomiting, Difficulty Swallowing, Anorexia Genitourinary: DENIES: Sexual dysfunction, Urinary frequency, Urinary incontinence, Urgency, Hematuria, Dysuria, Nocturia, Penile Discharge, Testicular Pain, Testicular Swelling Musculoskeletal: DENIES: Joint pain, Muscle aches, Stiffness, Joint Swelling, Back pain, Neck pain Integumentary: DENIES: Abnormal pigmentation, Nail changes, Pruritus, Rash Hematologic/lymphatic: DENIES: Bruising, Lymphadenopathy Immunologic/allergic: DENIES: Eczema, Urticaria Neurologic: DENIES: Abnormal gait, Headache, Localized weakness, Paresthesias, Seizures, Speech Problems, Tremor, Poor Balance Psychiatric: DENIES: Anxiety, Confusion, Mood changes, Depression, Hallucinations, Agitation, Suicidal Ideation, Homicidal Ideation, Delusions Past Family Social History Coded Allergies: *MDRO Multi-Drug Resistant Organism (Verified Adverse Reaction, Unknown, ) MRSA (arm)-11/08/16 Active Scripts Oxycodone-Acetaminophen (Percocet)7.5-325 mg Tab1 Tab PO Q4H PRN (PAIN SCALE 6 TO 10) #20 TAB Ref 0 Prov:Pancho Bertrand MD 11/24/16 Reported Medications Alprazolam (Xanax)1 Mg Tab1 Mg PO Q6H PRN (ANXIETY) Ref 0 11/08/16 Current Medications Medications (Trade) Dose Ordered Sig/[place] Route Start Time Stop Time Status Last Admin (NS Flush) 2 ml UNSCH PRN IV FLUSH 01/09/17 07:45 (NS Flush) 2 ml BID IV FLUSH 01/09/17 09:00 01/09/17 09:41 (Tylenol) 650 mg Q4H PRN PO 01/09/17 07:45 (Zofran Inj) 4 mg Q6H PRN IVP 01/09/17 07:45 (Dulcolax Supp) 10 mg DAILY PRN RECTAL 01/09/17 07:45 (Colace) 100 mg Q12HR PO 01/09/17 09:00 01/09/17 09:41 (Toradol Inj) 15 mg Q6H PRN IVP 01/09/17 07:45 01/14/17 07:44 (Toradol Inj) 30 mg Q6H PRN IVP 01/09/17 07:45 01/14/17 07:44 01/09/17 12:15 (Narcan Inj) 0.4 mg UNSCH PRN IV 01/09/17 07:45 (Apresoline Inj) 10 mg Q6H PRN IV 01/09/17 07:45 (Catapres) 0.1 mg Q6H PRN PO 01/09/17 07:45 (Ativan Inj) 2 mg Q6H PRN IV PUSH 01/09/17 07:45 01/09/17 12:15 (Haldol Inj) 2 mg Q6H PRN IM 01/09/17 07:45 (D50w (Vial) Inj) 50 ml UNSCH PRN IV 01/09/17 07:45 (Glucagon Inj) 1 mg UNSCH PRN OTHER 01/09/17 07:45 (Catapres) 0.1 mg Q12HR PO 01/09/17 09:00 01/09/17 09:41 (Vistaril) 25 mg Q6H PRN PO 01/09/17 09:00 01/09/17 09:41 (Flu (Quadrivalent) Vaccine Inj) 0.5 ml ONCE ONCE IM 01/10/17 10:00 01/10/17 10:01 Family History Patient denies psychiatric family history Social History Patient was born and raised in [place], he lives in [place] with a roommate, he works in the [employer], highest level of education is high school, he is , no kids Patient's Strengths (min. 2) Verbal communication, employed Physical Exam Physical examination, no hyperactivity, no psychomotor retardation, no restlessness, no withdrawal, no EPS, no stiffness, no tremors present Vital Signs Vital Signs Date Time Temp Pulse Resp B/P Pulse Ox O2 Delivery O2 Flow Rate FiO2 01/09/17 12:00 98.0 98 18 142/88 98 01/09/17 10:00 Room Air 01/09/17 07:43 21 Lab Results BAL is negative Toxicology positive for amphetamines, cannabis, cocaine, benzodiazepine Mental Status Examination Appearance man, street clothing, good hygiene, calm and cooperative Speech: Unremarkable Orientation: x3 Memory: Unremarkable Thought Process: Logical Thought Content: Unremarkable Language Fluent and spontaneous Fund of Knowledge Adequate for level of education Hallucination Type: None Suicidal Ideation: No Homicidal Ideation: No Judgment: WNL Affect: Good Mood: Appropriate Motor Activity: Normal gait Assessment & Plan Problem List: (1) Substance-induced psychotic disorder with delusions Assessment & Plan: At the moment of the psychiatric evaluation patient does not present any evidence of acute depression, anxiety, guilherme or psychosis. Patient denies suicidal or homicidal ideation, he denies visual and auditory hallucinations. No paranoia, delusions, delirium, agitation, aggressive behavior, flight of ideas, delusions of reference are reported or present. Patient is now calm, cooperative, logical and coherent. Recent episode of paranoia and psychosis seems to be related with multiple drugs intoxication. His toxicology is positive for benzodiazepines, amphetamines, cocaine and cannabis. Patient is clinically sober. He does not meet criteria for psychiatric admission. He will qualify for detox/rehabilitation, but he declines. Extensive support, motivation and psycho education provided. Vogel act will be lifted. ICD Code: F19.950 Assessment & Plan Estimated LOS: Eduardo Ramirez MD January 09, 2017 13:40
[2017-01-09 14:04] LABS: CKMB 2.7 NG/ML (0.5-3.6)
--- NOTE | 2017-01-09 17:02 | EC ---
Study Study Date:01/09/2017 STUDY CONCLUSIONS SUMMARY LEFT VENTRICLE: The cavity size was normal. Wall thickness was increased in a pattern of moderate LVH. Systolic function was normal. The estimated ejection fraction was 55%. Wall motion was normal; there were no regional wall motion abnormalities. If LV function is below 40, please consider prescribing an ACEI or ARB or document rationale for non-use. PROCEDURE DATA STUDY STATUS: Elective. Procedure: Transthoracic echocardiography. Image quality was good. Scanning was performed from the parasternal, apical, and subcostal acoustic windows. Study completion: The patient tolerated the procedure well. Transthoracic echocardiography. M-mode, complete 2D, complete spectral Doppler, and color Doppler. Height: Height: 71in. Weight: Weight: 186.6lb. Body mass index: BMI: 26.1kg/m^2. Body surface area: BSA: 2.05m^2. Patient status: Inpatient. CARDIAC ANATOMY LEFT VENTRICLE: The cavity size was normal. Wall thickness was increased in a pattern of moderate LVH. Systolic function was normal. The estimated ejection fraction was 55%. Wall motion was normal; there were no regional wall motion abnormalities. AORTIC VALVE: Trileaflet; normal thickness leaflets. Doppler: Transvalvular velocity was within the normal range. There was no stenosis. No regurgitation. Valve area: 3.19cm^2 (Vmax). Indexed valve area: 1.56cm^2/m^2 (Vmax). AORTA: Aortic root: The aortic root was normal in size. MITRAL VALVE: Structurally normal valve. Doppler: Transvalvular velocity was within the normal range. There was no evidence for stenosis. No regurgitation. Valve area by pressure half-time: 9.17cm^2. Indexed valve area by pressure half-time: 4.47cm^2/m^2. LEFT ATRIUM: The atrium was normal in size. RIGHT VENTRICLE: The cavity size was normal. Wall thickness was normal. PULMONIC VALVE: Doppler: Transvalvular velocity was within the normal range. There was no evidence for stenosis. No regurgitation. TRICUSPID VALVE: Structurally normal valve. Doppler: Transvalvular velocity was within the normal range. No regurgitation. PULMONARY ARTERY: The main pulmonary artery was normal-sized. Systolic pressure was within the normal range. RIGHT ATRIUM: The atrium was normal in size. PERICARDIUM: There was no pericardial effusion. SYSTEMIC VEINS: Inferior vena cava: The vessel was normal in size. Patient weight: 186.6lb _Ejection fraction:_ 65-75% _Fractional shortening:_ 32% up to 5Kg 5-11.5Kg 11.6-22.9Kg 23-45Kg 45-57Kg Aortic Root 7-13 <17 13-22 17-27 17-27 LA diam 6-13 <23 24-38 33-47 37-40 RVID 10-17 7-15 7-15 7-18 8-17 LVIDd 12-22 <32 24-38 33-47 37-40 LVPW 2-4 3-6 5-7 6-8 7-8 IVS 2-4 3-6 5-7 6-8 7-8 BASIC MEASUREMENTS ADULT NORMAL Left ventricle LV internal dimension, ED, chordal *35.4 mm 43-52 level, PLAX LV internal dimension, ES, chordal 26.5 mm 23-38 level, PLAX Fractional shortening, chordal level, *25 % >29 PLAX LV posterior wall thickness, ED 15.1 mm IVS/LVPW ratio, ED 1 <1.3 Volume, ED, MOD, 1-plane 60 ml Volume, ES, MOD, 1-plane 26 ml Ejection fraction, MOD, 1-plane 57 % Stroke volume, MOD, 1-plane 34 ml Volume index, ED, MOD, 1-plane 29 ml/m^2 Volume index, ES, MOD, 1-plane 13 ml/m^2 Stroke index, MOD, 1-plane 16.6 ml/m^2 Ventricular septum Septal thickness, ED 15.1 mm Aortic valve Leaflet separation 24 mm 15-26 Left atrium Anterior-posterior dimension 35 mm Anterior-posterior dimension index 1.71 cm/m^2 <2.2 Right ventricle RV internal dimension, ED, PLAX 21.1 mm 19-38 BASIC MEASUREMENTS ADULT NORMAL Aortic valve Leaflet separation 24 mm 15-26 Aorta Root diameter, ED 32 mm 20-37 DOPPLER MEASUREMENTS ADULT NORMAL Aortic valve Peak velocity, S 130 cm/s Valve area, Vmax 3.19 cm^2 Valve area index, Vmax 1.56 cm^2/m^2 Mitral valve Peak E-wave velocity 68.1 cm/s Peak A-wave velocity 85.9 cm/s Pressure half-time 24 ms Peak E/A ratio 0.8 Valve area, pressure half-time 9.17 cm^2 Valve area index, pressure half-time 4.47 cm^2/m^2 Pulmonic valve Peak velocity, S 100 cm/s LEGEND: Mean values are shown as u=mean value. Asterisk (*) hinojosa values outside specified normal range. Amended Yaneth Fam [id number]
[2017-01-09] MEDS ORDERED: HYDR1CAP30 PO (19:45)
[2017-01-09] MEDS ORDERED: CLON.1 PO (19:45)
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
[2017-01-10] VITALS: BP 164/91; PULSE 89; RESP 18; TEMP 98.2; O2SAT 99
[2017-01-10] MEDS: ONDANSETRON HCL 4 MG/2 ML VIAL IVP PRN ×3 (01:11→14:44)
[2017-01-10] MEDS: LORazepam 2 MG/ML VIAL IV PUSH PRN ×3 (02:00→14:43)
[2017-01-10] MEDS: KETOROLAC TROMETHAMINE 30 MG/ML (IVP) VIAL IVP PRN ×3 (02:01→14:44)
[2017-01-10 04:00] VITALS: BP 154/104; PULSE 103; RESP 18; TEMP 97.3; O2SAT 98
[2017-01-10] MEDS: INSULIN ASPART SUPPLEMENTAL SCALE SQ SCH ×2 (05:51→11:00)
[2017-01-10 07:50] VITALS: BP 142/100; PULSE 89; RESP 18; TEMP 97.6; O2SAT 98
[2017-01-10 08:02] LABS: AUTOMATED NEUTROPHIL # 3.5 TH/MM3 (1.8-7.7); BASOPHIL % 0.3 % (0.0-2.0); EOSINOPHIL # 0.2 TH/MM3 (0-0.4); EOSINOPHIL % 3.7 % (0.0-4.0); HEMATOCRIT 45.3 % (39.0-51.0); HEMO FLAGS DIFF FINAL; LYMPH % 27.6 % (9.0-44.0); LYMPHOCYTE # 1.7 TH/MM3 (1.0-4.8); MEAN CELL VOLUME 90.6 FL (80.0-100.0); MEAN CORPUSCULAR HEMOGLOBIN 29.5 PG (27.0-34.0); MEAN CORPUSCULAR HGB CONC 32.6 % (32.0-36.0); NEUT % 57.4 % (16.0-70.0); PLATELET COUNT 181 TH/MM3 (150-450); RED CELL DISTRIBUTION WIDTH 14.1 % (11.6-17.2); WHITE BLOOD COUNT 6.2 TH/MM3 (4.0-11.0)
[2017-01-10 08:30] LABS: ALKALINE PHOSPHATASE 66 U/L (45-117); ALT (GPT) 72 U/L (12-78); ANION GAP 11 MEQ/L (5-15); AST (GOT) 45 U/L (15-37); BICARBONATE 23.3 MEQ/L (21.0-32.0); BLOOD UREA NITROGEN 10 MG/DL (7-18); CHLORIDE 106 MEQ/L (98-107); CREATINE KINASE 235 U/L (39-308); GLOMERULAR FILTRATION RATE 116 ML/MIN (>89); SODIUM (NA) 140 MEQ/L (136-145); TOTAL BILIRUBIN ADULT 0.5 MG/DL (0.2-1.0)
[2017-01-10] MEDS: cloNIDine HCL 0.1 MG TAB PO SCH (08:43)
[2017-01-10] MEDS: DOCUSATE SODIUM 100 MG CAP PO SCH (08:43)
[2017-01-10] MEDS: SODIUM CHLORIDE 0.9% FLUSH 10 ML FLUSH IV FLUSH SCH (08:43)
[2017-01-10] MEDS ORDERED: INFLUENZA VIRUS VACCINE (QUADRIVALENT) 0.5 ML SYR IM ONE (10:00)
[2017-01-10 12:00] VITALS: BP 136/85; PULSE 72; RESP 18; TEMP 98; O2SAT 97
--- NOTE | 2017-01-10 12:07 | HHI.PR ---
Subjective Remarks Follow-up encephalopathy. Denies headache, dizziness, chest pain and shortness of breath. Stable overnight discussed with RN. Patient requesting refill of his pain medication which I declined. Advised to avoid narcotics. Patient has been cleared for discharge by psychiatry Objective Vitals Vital Signs Date Time Temp Pulse Resp B/P Pulse Ox O2 Delivery O2 Flow Rate FiO2 01/10/17 07:50 97.6 89 18 142/100 98 01/10/17 04:00 97.3 103 18 154/104 98 01/10/17 00:00 98.2 89 18 164/91 99 01/09/17 20:15 85 01/09/17 20:00 97.7 100 18 142/95 98 01/09/17 18:04 98 21 01/09/17 16:00 98.0 100 18 149/90 98 01/09/17 12:00 98.0 98 18 142/88 98 I/O 01/09/17 01/09/17 01/09/17 01/10/17 01/10/17 01/10/17 07:00 15:00 23:00 07:00 15:00 23:00 Intake Total 360 ml Balance 360 ml Intake Oral 360 ml # Voids 2 # Bowel Movements 0 Result Diagram: 01/10/17 0642 01/10/17 0642 Imaging Last Impressions Head CT 01/09/17 0400 Signed Impressions: Service Date/Time: Monday, January 09, 2017 05:18 - CONCLUSION: Stable negative noncontrast head CT. Jero Naqvi MD Chest X-Ray 01/09/17 0000 Signed Impressions: Service Date/Time: Monday, January 09, 2017 02:51 - CONCLUSION: No acute disease. A round metal BB is projected over the right hilar region. Jero Naqvi MD Objective Remarks GENERAL: Well-developed and well-nourished in no distress SKIN: Warm and dry. HEAD: Atraumatic. Normocephalic. EYES: Pupils equal and round. No scleral icterus. No injection or drainage. ENT: No nasal bleeding or discharge. Mucous membranes pink and moist. NECK: Trachea midline. No JVD. CARDIOVASCULAR: Regular rate and rhythm. RESPIRATORY: No accessory muscle use. Clear to auscultation. Breath sounds equal bilaterally. GASTROINTESTINAL: Abdomen soft, non-tender, nondistended. MUSCULOSKELETAL: Extremities without clubbing, cyanosis, or edema. No obvious deformities. NEUROLOGICAL: Awake and alert. No obvious cranial nerve deficits. Motor grossly within normal limits. Five out of 5 muscle strength in the arms and legs. Normal speech. PSYCHIATRIC: Appropriate mood and affect; insight and judgment normal. Procedures None A/P Problem List: (1) Overdose of sympathomimetic agent ICD Code: T44.901A Status: Acute (2) History of substance abuse ICD Code: Z87.898 Status: Acute (3) Elevated troponin ICD Code: R74.8 Status: Acute (4) Lactic acidosis ICD Code: E87.2 Status: Resolved Assessment and Plan This is a 36-year-old male who admits using marijuana last night and developed palpitations. He also saw suspicious people in the [employer] parking lot. In the emergency department, he appeared to be in the influence of some substance. He was paranoid, delusional and withdrawn. EMR shows that he has been evaluated multiple times for drug-induced psychosis and tested positive for cocaine. UDS positive for cocaine, amphetamine, benzodiazepine and marijuana. He was given several doses of Ativan total of 4 mg and 5 mg of Haldol and became sedated. At this time, he is alert and oriented 4. He does not have any complaints except feeling tired. Denies chest pain, shortness of breath, headache, dizziness, fever, chills, diaphoresis, numbness and focal weakness. States he had unremarkable exercise stress test over a year ago. He works in [employer]. Toxic encephalopathy. He received Ativan and Haldol. Head CT without acute findings. Resolved. Continue Ativan and Haldol as needed. Neurochecks. Vogel act. Psychiatry discontinued Vogel act Acute kidney injury status post 3 L bolus. Resolved. Avoid nephrotoxins. Repeat BMP and magnesium stable Lactic acidosis. Resolved after fluid bolus. Monitor Elevated troponin. EKG with sinus tachycardia likely secondary to above. Denies chest pain. Reports of negative Exercise stress test over a year ago. He is fairly active without any symptoms. He received aspirin in the emergency room. We'll avoid beta denny secondary to recent cocaine use. Likely this is related to above and uncontrolled hypertension. Echocardiogram EF 55% with LVH Sinus tachycardia secondary to above. TSH unremarkable. Resolved. Continue to monitor on telemetry. Leukocytosis likely reactive. Urinalysis and chest x-ray with no signs of infection. Resolve Transaminitis history of hepatitis C. We'll monitor Hyperglycemia. No history of diabetes mellitus. Monitor fingersticks with sliding scale coverage. A1c 5.3 Uncontrolled hypertension secondary to above. Improving continue clonidine. Monitor Low risk for DVT Discharge Planning Stable for discharge Problem Qualifiers (1) Overdose of sympathomimetic agent: Qualified Code: T44.904A - Overdose of sympathomimetic agent, undetermined intent, initial encounter Allan Juarez MD January 10, 2017 12:07
--- NOTE | 2017-01-10 12:08 | HHI.DS ---
Discharge Summary Admission Date January 09, 2017 at 07:23 Discharge Date: January 10, 2017 Admitting Diagnosis Drug induced psychosis, Elevated Troponin. (1) Overdose of sympathomimetic agent ICD Code: T44.901A Diagnosis: Principal (2) History of substance abuse ICD Code: Z87.898 Diagnosis: Principal (3) Elevated troponin ICD Code: R74.8 Diagnosis: Principal (4) Lactic acidosis ICD Code: E87.2 Diagnosis: Principal Procedures None Brief History - From Admission This is a 36-year-old male with a history of anxiety and hypertension. He presents to the emergency Department by law enforcement for evaluation. Patient 's chief complaint to triage was "everybody is out for me". He admits using marijuana last night and developed palpitations. He also saw suspicious people in the [email or web address] parking lot. In the emergency department, he appeared to be in the influence of some substance. He was paranoid, delusional and withdrawn. EMR shows that he has been evaluated multiple times for drug-induced psychosis and tested positive for cocaine. He was given several doses of Ativan total of 4 mg and 5 mg of Haldol and became sedated. At this time, he is alert and oriented 4. He does not have any complaints except feeling tired. Denies chest pain, shortness of breath, headache, dizziness, fever, chills, diaphoresis , numbness and focal weakness. States he had unremarkable exercise stress test over a year ago. He works in [employer]. History PFSH Past Medical History Asthma: Yes (as a child - exertion asthma) Blood Disorders: No Anxiety: Yes Depression: Yes Heart Rhythm Problems: No Cancer: No Cardiovascular Problems: Yes (HTN) High Cholesterol: No Chest Pain: No Congestive Heart Failure: No COPD: No Diabetes: No Diminished Hearing: No Diverticulitis: Yes Endocrine: No Genitourinary: No Hepatitis: Yes (c) Hypertension: Yes Musculoskeletal: No Neurologic: No Psychiatric: No Reproductive: No Respiratory: Yes Seizures: Yes Sleep Apnea: No Thyroid Disease: No Tetanus Vaccination: Unknown Influenza Vaccination: No Past Surgical History Other Surgery: Yes (SINUS) Social History Alcohol Use: Yes (OCCASIONALLY) Tobacco Use: Yes (1/2 PPD) Substance Use: No Allergies-Medications Allergies-Medications (Allergen,Severity, Reaction): Coded Allergies: *MDRO Multi-Drug Resistant Organism (Verified Adverse Reaction, Unknown, ) MRSA (arm)-11/08/16 Reported Meds & Prescriptions Reported Meds & Active Scripts Active Percocet (Oxycodone-Acetaminophen) 7.5-325 mg Tab 1 Tab PO Q4H PRN Reported Xanax (Alprazolam) 1 Mg Tab 1 Mg PO Q6H PRN CBC/BMP: 01/10/17 0642 01/10/17 0642 Significant Findings Laboratory Tests Test 01/09/17 01/09/17 01/09/17 01/09/17 02:15 03:05 03:35 04:15 White Blood Count 29.5 TH/MM3 (4.0-11.0) Neutrophils (%) (Auto) 86.2 % (16.0-70.0) Lymphocytes (%) (Auto) 5.0 % (9.0-44.0) Neutrophils # (Auto) 25.4 TH/MM3 (1.8-7.7) Monocytes # (Auto) 2.3 TH/MM3 (0-0.9) Basophils # (Auto) 0.3 TH/MM3 (0-0.2) Carbon Dioxide Level 17.1 MEQ/L (21.0-32.0) Creatinine 1.43 MG/DL (0.60-1.30) Estimat Glomerular Filtration 57 ML/MIN (>89) Rate Random Glucose 266 MG/DL (74-106) Aspartate Amino Transf 79 U/L (15-37) (AST/SGOT) Alanine Aminotransferase 102 U/L (12-78) (ALT/SGPT) Lactic Acid Level 4.4 mmol/L (0.4-2.0) Troponin I 0.24 NG/ML (0.02-0.05) Salicylates Level 1.9 MG/DL (2.8-20.0) Acetaminophen Level LESS THAN 2.0 MCG/ML (10.0-30.0) Test 01/09/17 01/09/17 01/09/17 01/10/17 05:45 06:05 12:54 06:42 Urine Glucose (UA) 1000 mg/dL (NEG) Urine Ketones 40 mg/dL (NEG) Urine Leukocyte Esterase SMALL (NEG) Urine WBC 7 /hpf (0-5) Urine Mucus FEW /lpf (OCC) Urine Amphetamines Screen POS (NEG) Urine Benzodiazepines Screen POS (NEG) Urine Cocaine Screen POS (NEG) Urine Cannabinoids Screen POS (NEG) Chloride Level 110 MEQ/L (98-107) Random Glucose 109 MG/DL (74-106) Calcium Level 7.8 MG/DL (8.5-10.1) Troponin I 0.48 NG/ML 0.51 NG/ML 0.15 NG/ML (0.02-0.05) (0.02-0.05) (0.02-0.05) Total Creatine Kinase 338 U/L (39-308) Monocytes (%) (Auto) 11.0 % (0.0-8.0) Aspartate Amino Transf 45 U/L (15-37) (AST/SGOT) Albumin 3.3 GM/DL (3.4-5.0) Imaging Last Impressions Head CT 01/09/17 0400 Signed Impressions: Service Date/Time: Monday, January 09, 2017 05:18 - CONCLUSION: Stable negative noncontrast head CT. Jero Naqvi MD Chest X-Ray 01/09/17 0000 Signed Impressions: Service Date/Time: Monday, January 09, 2017 02:51 - CONCLUSION: No acute disease. A round metal BB is projected over the right hilar region. Jero Naqvi MD PE at Discharge GENERAL: Well-developed and well-nourished in no distress SKIN: Warm and dry. HEAD: Atraumatic. Normocephalic. EYES: Pupils equal and round. No scleral icterus. No injection or drainage. ENT: No nasal bleeding or discharge. Mucous membranes pink and moist. NECK: Trachea midline. No JVD. CARDIOVASCULAR: Regular rate and rhythm. RESPIRATORY: No accessory muscle use. Clear to auscultation. Breath sounds equal bilaterally. GASTROINTESTINAL: Abdomen soft, non-tender, nondistended. MUSCULOSKELETAL: Extremities without clubbing, cyanosis, or edema. No obvious deformities. NEUROLOGICAL: Awake and alert. No obvious cranial nerve deficits. Motor grossly within normal limits. Five out of 5 muscle strength in the arms and legs. Normal speech. PSYCHIATRIC: Appropriate mood and affect; insight and judgment normal. Hospital Course This is a 36-year-old male who admits using marijuana last night and developed palpitations. He also saw suspicious people in the [email or web address] parking lot. In the emergency department, he appeared to be in the influence of some substance. He was paranoid, delusional and withdrawn. EMR shows that he has been evaluated multiple times for drug-induced psychosis and tested positive for cocaine. UDS positive for cocaine, amphetamine, benzodiazepine and marijuana. He was given several doses of Ativan total of 4 mg and 5 mg of Haldol and became sedated. At this time, he is alert and oriented 4. He does not have any complaints except feeling tired. Denies chest pain, shortness of breath, headache, dizziness, fever, chills, diaphoresis, numbness and focal weakness. States he had unremarkable exercise stress test over a year ago. He works in [employer]. Toxic encephalopathy. He received Ativan and Haldol. Head CT without acute findings. Resolved. Continue Ativan and Haldol as needed. Neurochecks. Vogel act. Psychiatry discontinued Vogel act Acute kidney injury status post 3 L bolus. Resolved. Avoid nephrotoxins. Repeat BMP and magnesium stable Lactic acidosis. Resolved after fluid bolus. Monitor Elevated troponin. EKG with sinus tachycardia likely secondary to above. Denies chest pain. Reports of negative Exercise stress test over a year ago. He is fairly active without any symptoms. He received aspirin in the emergency room. We'll avoid beta denny secondary to recent cocaine use. Likely this is related to above and uncontrolled hypertension. Echocardiogram EF 55% with LVH Sinus tachycardia secondary to above. TSH unremarkable. Resolved. Continue to monitor on telemetry. Leukocytosis likely reactive. Urinalysis and chest x-ray with no signs of infection. Resolve Transaminitis history of hepatitis C. We'll monitor Hyperglycemia. No history of diabetes mellitus. Monitor fingersticks with sliding scale coverage. A1c 5.3 Uncontrolled hypertension secondary to above. Improving continue clonidine. Monitor Low risk for DVT Pt Condition on Discharge: Stable Discharge Disposition: Discharge Home Discharge Time: > 30 minutes Discharge Instructions DIET: Follow Instructions for: Heart Healthy Diet, Diabetic Diet Activities you can perform: Regular-No Restrictions Activities to Avoid: Driving Follow up Referrals: PCP Follow-up - 1 Week New Medications: Clonidine (Catapres) 0.1 Mg Tab 0.1 MG PO Q12HR Blood Pressure Management #60 TAB Hydroxyzine Pamoate (Hydroxyzine Pamoate) 25 Mg Cap 25 MG PO Q6H PRN anxiety #30 CAP Continued Medications: Alprazolam (Xanax) 1 Mg Tab 1 MG PO Q6H PRN ANXIETY Ref 0 TAB Oxycodone-Acetaminophen (Percocet) 7.5-325 mg Tab 1 TAB PO Q4H PRN PAIN SCALE 6 TO 10 #20 Ref 0 TAB Allan Juarez MD January 10, 2017 12:07
== END 2017-01-10 15:05 | disposition home or self-care (01) | DRG 917 ==
LOC: NEPC 01:28 → NEDA 07:23 → N04A 11:27
PROVIDERS: ADMIT Internal Medicine; ATTEND Internal Medicine
DX: T40.7X1A Poisoning by cannabis (derivatives), accidental (unintentional), initial encounter (principal); G92 Toxic encephalopathy; N17.9 Acute kidney failure, unspecified; E87.2 Acidosis; F14.20 Cocaine dependence, uncomplicated; F15.20 Other stimulant dependence, uncomplicated; F13.20 Sedative, hypnotic or anxiolytic dependence, uncomplicated; F41.9 Anxiety disorder, unspecified; F32.9 Major depressive disorder, single episode, unspecified; I10 Essential (primary) hypertension; F17.210 Nicotine dependence, cigarettes, uncomplicated; Z91.19 Patient's noncompliance with other medical treatment and regimen; R00.2 Palpitations; Y92.9 Unspecified place or not applicable; R73.9 Hyperglycemia, unspecified; F12.20 Cannabis dependence, uncomplicated
CPT/HCPCS: 70450; 71010; 80048; 80053; 80307; 81001; 82010; 82550; 82552; 82948; 83036; 83605; 84443; 84484; 85025; 93005; 93306; 96361; 96365; 96372; 96375; 96376; J1630; J1885; J2060; J2405; J3411; J7030; Q0177

== ENCOUNTER 2017-01-10 21:57 | Emergency (ER) | payer OTHER ==
[~2017-01-10] VITALS: Ht 175.3 cm; Wt 100.0 kg
[~2017-01-10 21:57] MED LIST changes: +CLON.1 PO; +HYDR1CAP30 PO
--- NOTE | 2017-01-10 22:23 | PD ---
HPI Chief Complaint: Vogel act Time Seen by Provider: 22:10 Travel History International Travel<30 days: No Contact w/Intl Traveler<30days: No Traveled to known affect area: No History of Present Illness HPI 36-year-old male was Vogel acted and brought in by police department for psychiatric evaluation. Patient was threatening suicidal this evening. Patient admitted to drinking alcohol prior to arrival. Patient denies any drug abuse. Patient however has history of substance abuse and substance induced mood disorder. Patient was admitted to [facility] psychiatric area yesterday and discharged this morning. Urine drug screen positive for amphetamines, benzodiazepine, cocaine and cannabis. Patient was threatening to run into traffic to kill himself. Patient states that he has aching pain all over the body. PFSH Past Medical History Asthma: Yes (as a child - exertion asthma) Blood Disorders: No Anxiety: Yes Depression: Yes Heart Rhythm Problems: No Cancer: No Cardiovascular Problems: Yes (HTN) High Cholesterol: No Chest Pain: No Congestive Heart Failure: No COPD: No Diabetes: No Diminished Hearing: No Diverticulitis: Yes Endocrine: No Genitourinary: No Hepatitis: Yes (c) Hypertension: Yes Musculoskeletal: No Neurologic: No Psychiatric: No Reproductive: No Respiratory: Yes Seizures: Yes (last 2009) Sleep Apnea: No Thyroid Disease: No Past Surgical History Other Surgery: Yes (SINUS) Social History Alcohol Use: Yes (OCCASIONALLY) Tobacco Use: Yes (1/2 PPD) Substance Use: No Allergies-Medications (Allergen,Severity, Reaction): Coded Allergies: *MDRO Multi-Drug Resistant Organism (Verified Adverse Reaction, Unknown, ) MRSA (arm)-11/08/16 Reported Meds & Prescriptions Reported Meds & Active Scripts Active Hydroxyzine Pamoate 25 Mg Cap 25 Mg PO Q6H PRN Catapres (Clonidine) 0.1 Mg Tab 0.1 Mg PO Q12HR Percocet (Oxycodone-Acetaminophen) 7.5-325 mg Tab 1 Tab PO Q4H PRN Reported Xanax (Alprazolam) 1 Mg Tab 1 Mg PO Q6H PRN Review of Systems General / Constitutional: No: Fever Eyes: No: Visual changes HENT: No: Headaches Cardiovascular: No: Chest Pain or Discomfort Respiratory: No: Shortness of Breath Gastrointestinal: No: Abdominal Pain Genitourinary: No: Dysuria Musculoskeletal: No: Pain Skin: No Rash Neurologic: No: Weakness Psychiatric: No: Depression Endocrine: No: Polydipsia Hematologic/Lymphatic: No: Easy Bruising Physical Exam Narrative GENERAL: Well-nourished, well-developed patient. SKIN: Focused skin assessment warm/dry. HEAD: Normocephalic. EYES: No scleral icterus. No injection or drainage. Pupils 3 mm equal reactive. NECK: Supple, trachea midline. No JVD or lymphadenopathy. CARDIOVASCULAR: Regular rate and rhythm without murmurs, gallops, or rubs. RESPIRATORY: Breath sounds equal bilaterally. No accessory muscle use. GASTROINTESTINAL: Abdomen soft, non-tender, nondistended. MUSCULOSKELETAL: No cyanosis, or edema. BACK: Nontender without obvious deformity. No CVA tenderness. Neurologic exam: Patient's awake and alert oriented to place and person. Patient moves all extremities well. No obvious focal neurological deficit. MDM Medical Decision Making Medical Screen Exam Complete: Yes Emergency Medical Condition: Yes Medical Record Reviewed: Yes Differential Diagnosis Differential diagnosis including suicidal, substance-induced mood disorder. Narrative Course 36-year-old male was Vogel acted and brought in for evaluation for suicidal breath. Patient has history of substance abuse and substance induced mood disorder. Walter Morales MD January 10, 2017 22:23
[2017-01-10 22:35] VITALS: PULSE 91; RESP 16; TEMP 98.2; O2SAT 95
[2017-01-10 22:39] VITALS: BP 153/82; PULSE 95; RESP 16; TEMP 99.2; O2SAT 95
[2017-01-10] MEDS ORDERED: IBUPROFEN 600 MG TAB PO ONE (23:30)
[2017-01-11 01:57] LABS: AUTOMATED NEUTROPHIL # 7.5 TH/MM3 (1.8-7.7); BASOPHIL % 0.4 % (0.0-2.0); EOSINOPHIL # 0.2 TH/MM3 (0-0.4); EOSINOPHIL % 1.6 % (0.0-4.0); HEMATOCRIT 45.3 % (39.0-51.0); HEMO FLAGS DIFF FINAL; LYMPH % 16.5 % (9.0-44.0); LYMPHOCYTE # 1.7 TH/MM3 (1.0-4.8); MEAN CELL VOLUME 89.8 FL (80.0-100.0); MEAN CORPUSCULAR HGB CONC 34.6 % (32.0-36.0); MONO % 7.5 % (0.0-8.0); PLATELET COUNT 218 TH/MM3 (150-450); RED BLOOD COUNT 5.05 MIL/MM3 (4.50-5.90); WHITE BLOOD COUNT 10.1 TH/MM3 (4.0-11.0)
[2017-01-11 02:02] LABS: AMPHETAMINE, URINE POS (NEG); BARBITURATES, URINE NEG (NEG); COCAINE, URINE NEG (NEG)
[2017-01-11 02:09] LABS: ALT (GPT) 74 U/L (12-78); ANION GAP 14 MEQ/L (5-15); AST (GOT) 58 U/L (15-37); BICARBONATE 18.4 MEQ/L (21.0-32.0); BLOOD UREA NITROGEN 12 MG/DL (7-18); CHLORIDE 107 MEQ/L (98-107); GLOMERULAR FILTRATION RATE 99 ML/MIN (>89); POTASSIUM 3.5 MEQ/L (3.5-5.1); SODIUM (NA) 139 MEQ/L (136-145)
[2017-01-11 02:12] LABS: ALKALINE PHOSPHATASE 66 U/L (45-117); TOTAL BILIRUBIN ADULT 0.4 MG/DL (0.2-1.0)
[2017-01-11 08:32] VITALS: BP 136/58; PULSE 102; O2SAT 95
--- NOTE | 2017-01-11 10:47 | PD ---
History of Present Illness Chief Complaint: Psychiatric Symptoms Time Seen by Provider: 10:45 Travel History International Travel<30 Days: No Contact w/Intl Traveler<30days: No Known affected area: No Legal Status Legal Status: Vogel Act Vogel Act Signed By: Shruthi Vogel Act Comment: WANTS TO THROW SELF IN TRAFFIC History of Present Illness: History of Present Illness HPI 36-year-old male with history of substance use disorder as well as substance induced mood disorder who presents under a BA initiated by JOSIAH after he contacted the police and informed them that he was having thoughts of killing himself by throwing himself into traffic. Patient admitted to drinking alcohol prior to arrival ad BAL of 191. Patient denies any drug abuse although current toxicology is positive for amphetamines . Patient was admitted to [facility] psychiatric area yesterday and discharged this morning after treatment for substance induced psychosis. Seen. record reviewed. Alert, oriented, calm and engaging. he is clinically sober at this time. Speech is clear and logical.No psychosis and no guilherme. I can elicit no acute psychiatric symptomatology. States going thru divorce and that he needs to " figure it out". There is no current suicidal or homicidal ideation. I suggest to patient that he accept treatment for his substance abuse but he flat out refuses and states " I don't think I need that and I don' t want to receive such treatment". PFSH Past Medical History Asthma: Yes (as a child - exertion asthma) Blood Disorders: No Anxiety: Yes Depression: Yes Heart Rhythm Problems: No Cancer: No Cardiovascular Problems: Yes (HTN) High Cholesterol: No Chest Pain: No Congestive Heart Failure: No COPD: No Diabetes: No Diminished Hearing: No Diverticulitis: Yes Endocrine: No Gastrointestinal Disorders: No Genitourinary: No Hepatitis: Yes (c) Hypertension: Yes Implanted Vascular Access Dvce: No Musculoskeletal: No Neurologic: No Psychiatric: No Reproductive: No Respiratory: Yes Seizures: Yes (last 2009) Sleep Apnea: No Thyroid Disease: No ?: Not Past Surgical History Other Surgery: Yes (SINUS) Psychiatric History Psychiatric History Hx Psychiatric Treatment: [facility] 6-7 YEARS AGO, CANNOT REMEMBER WHO, History of Inpatient Treatment: Yes Guns or firearms in home: No Social History male. Living with a friend. Hx Alcohol Use: Yes (OCCASIONALLY) Hx Tobacco Use: Yes (1/2 PPD) Hx Substance Use: No (DENIES) Substance Use Type: Alcohol, Benzos (Valium,Xanax) Other Substances Used: "I DONT TAKE ANY DRUGS" Hx of Substance Use Treatment: No Family Psychiatric History None reported Allergies-Medications (Allergen,Severity, Reaction): Coded Allergies: *MDRO Multi-Drug Resistant Organism (Verified Adverse Reaction, Unknown, ) MRSA (arm)-11/08/16 Reported Meds & Prescriptions Reported Meds & Active Scripts Active Hydroxyzine Pamoate 25 Mg Cap 25 Mg PO Q6H PRN Catapres (Clonidine) 0.1 Mg Tab 0.1 Mg PO Q12HR Percocet (Oxycodone-Acetaminophen) 7.5-325 mg Tab 1 Tab PO Q4H PRN Reported Xanax (Alprazolam) 1 Mg Tab 1 Mg PO Q6H PRN Review of Systems Except as stated in HPI: all other systems reviewed are Neg Exam Alert: Yes [place]: Person (ox4) Mood: Calm Affect: Appropriate Speech: Clear, Logical Eye Contact: Normal Memory Intact: Comment (no impairmetn) Hallucinations: Other (neagtive) Delusions: No Suicidal: Ideation (deneis any) Homicidal: Ideation (denies any) Insight/Judgement Poor. Poor MDM Medical Decision Making Medical Record Reviewed: Yes Assessment/Plan Patient at this time refusing any substance abuse treatment options. States " I don't believe that is my problem. At this time he does not meet BA criteria. Cleared from psychiatry for discharge I did convince him to accept the substance abuse referral packet. Orders Complete Blood Count With Diff (01/10/17 22:16) Comprehensive Metabolic Panel (01/10/17 22:16) Psych Screen (01/10/17 22:16) Drug Screen, Random Urine (01/10/17 22:16) Alcohol (Ethanol) (01/10/17 22:16) Ibuprofen (Motrin) (01/10/17 23:30) Diet Regular Basic (01/11/17 Breakfast) Results Vital Signs Date Time Temp Pulse Resp B/P Pulse Ox O2 Delivery O2 Flow Rate FiO2 01/11/17 08:32 102 136/58 95 Room Air 01/10/17 22:39 99.2 95 16 153/82 95 Room Air 01/10/17 22:35 98.2 91 16 95 Laboratory Tests Test 01/10/17 22:30 White Blood Count 10.1 Red Blood Count 5.05 Hemoglobin 15.7 Hematocrit 45.3 Mean Corpuscular Volume 89.8 Mean Corpuscular Hemoglobin 31.0 Mean Corpuscular Hemoglobin 34.6 Concent Red Cell Distribution Width 14.0 Platelet Count 218 Mean Platelet Volume 9.6 Neutrophils (%) (Auto) 74.0 Lymphocytes (%) (Auto) 16.5 Monocytes (%) (Auto) 7.5 Eosinophils (%) (Auto) 1.6 Basophils (%) (Auto) 0.4 Neutrophils # (Auto) 7.5 Lymphocytes # (Auto) 1.7 Monocytes # (Auto) 0.8 Eosinophils # (Auto) 0.2 Basophils # (Auto) 0.0 CBC Comment DIFF FINAL Differential Comment Sodium Level 139 Potassium Level 3.5 Chloride Level 107 Carbon Dioxide Level 18.4 Anion Gap 14 Blood Urea Nitrogen 12 Creatinine 0.88 Estimat Glomerular Filtration 99 Rate Random Glucose 79 Calcium Level 8.9 Total Bilirubin 0.4 Aspartate Amino Transf 58 (AST/SGOT) Alanine Aminotransferase 74 (ALT/SGPT) Alkaline Phosphatase 66 Total Protein 7.1 Albumin 3.7 Urine Opiates Screen NEG Urine Barbiturates Screen NEG Urine Amphetamines Screen POS Urine Benzodiazepines Screen NEG Urine Cocaine Screen NEG Urine Cannabinoids Screen NEG Ethyl Alcohol Level 191 Diagnosis Primary Impression: Substance induced mood disorder Psychiatrically Cleared: Yes Med/ Other Pt Specific Info: No Meds Exist/No RX given Disposition: 01 DISCHARGE HOME Condition: Stable Neena Elkins [facility] January 11, 2017 10:47
== END 2017-01-11 11:40 | disposition home or self-care (01) ==
LOC: NEPD 21:57
DX: F19.94 Other psychoactive substance use, unspecified with psychoactive substance-induced mood disorder (principal); R45.851 Suicidal ideations; M79.1 Myalgia; I10 Essential (primary) hypertension; F17.200 Nicotine dependence, unspecified, uncomplicated; Z86.59 Personal history of other mental and behavioral disorders; Z86.79 Personal history of other diseases of the circulatory system; Z87.19 Personal history of other diseases of the digestive system; Z86.19 Personal history of other infectious and parasitic diseases; Z86.69 Personal history of other diseases of the nervous system and sense organs
CPT/HCPCS: 80053; 80307; 85025; 99285

== ENCOUNTER 2018-02-09 22:47 | Emergency (ER) | payer OTHER ==
[~2018-02-09] VITALS: Ht 180.3 cm; Wt 85.0 kg
[2018-02-09 22:56] VITALS: BP 143/73; PULSE 112; RESP 16; TEMP 98.5; O2SAT 95
[2018-02-09] MEDS ORDERED: IBUPROFEN 600 MG TAB PO ONE (23:15)
[2018-02-09] MEDS ORDERED: TETANUS/DIPHTHERIA TOXOID ADULT 0.5 ML VIAL IM ONE (23:15)
--- NOTE | 2018-02-09 23:19 | PD ---
HPI Chief Complaint: Psychiatric Symptoms Time Seen by Provider: 23:09 Travel History International Travel<30 days: No Contact w/Intl Traveler<30days: No Traveled to known affect area: No History of Present Illness HPI 37-year-old male was Vogel acted for depression and suicidal attempt. Patient has history of depression. Patient tried to cut himself with a pocket knife this evening. Patient states that he has burning pain to the right wrist area. Patient states that he is not up-to-date with TD booster. Patient has history hypertension and was on lisinopril and clonidine the past but not recently. Patient states that he drinks alcohol daily. Patient is a smoker. Patient denies any illicit drug abuse. PFSH Past Medical History Hx Anticoagulant Therapy: No Asthma: Yes (as a child - exertion asthma) Blood Disorders: No Anxiety: Yes Depression: Yes Heart Rhythm Problems: No Cancer: No Cardiovascular Problems: Yes (HYPERTENSION) High Cholesterol: No Chemotherapy: No Chest Pain: No Congestive Heart Failure: No COPD: No Cerebrovascular Accident: No Diabetes: No Diminished Hearing: No Diverticulitis: Yes Endocrine: No Gastrointestinal Disorders: No Genitourinary: No Hepatitis: Yes (c) Hypertension: Yes Implanted Vascular Access Dvce: No Musculoskeletal: No Neurologic: No Psychiatric: No Reproductive: No Respiratory: No Seizures: Yes (last 2009) Sleep Apnea: No Thyroid Disease: No Past Surgical History Other Surgery: Yes (SINUS) Social History Alcohol Use: Yes (OCCASIONALLY) Tobacco Use: Yes (1/2 PPD) Substance Use: No (DENIES) Allergies-Medications (Allergen,Severity, Reaction): Coded Allergies: No Known Allergies (Verified Allergy, Unknown, 02/09/18) *MDRO Multi-Drug Resistant Organism (Verified Adverse Reaction, Unknown, ) MRSA (arm)-11/08/16 Reported Meds & Prescriptions Reported Meds & Active Scripts Active No Active Prescriptions or Reported Medications Review of Systems General / Constitutional: No: Fever Eyes: No: Visual changes HENT: No: Headaches Cardiovascular: No: Chest Pain or Discomfort Respiratory: No: Shortness of Breath Gastrointestinal: No: Abdominal Pain Genitourinary: No: Dysuria Musculoskeletal: No: Pain Skin: No Rash Neurologic: No: Weakness Psychiatric: Positive: Depression, Suicidal Ideations Endocrine: No: Polydipsia Hematologic/Lymphatic: No: Easy Bruising Physical Exam Narrative GENERAL: Well-nourished, well-developed patient. SKIN: Focused skin assessment warm/dry. HEAD: Normocephalic. EYES: No scleral icterus. No injection or drainage. NECK: Supple, trachea midline. No JVD or lymphadenopathy. CARDIOVASCULAR: Regular rate and rhythm without murmurs, gallops, or rubs. RESPIRATORY: Breath sounds equal bilaterally. No accessory muscle use. GASTROINTESTINAL: Abdomen soft, non-tender, nondistended. MUSCULOSKELETAL: No cyanosis, or edema. BACK: Nontender without obvious deformity. No CVA tenderness. Patient has superficial lacerations to the anterior aspect of the right wrist. No active bleeding. Sensory motor function distally intact. Data Data Last Documented VS Vital Signs Date Time Temp Pulse Resp B/P (MAP) Pulse Ox O2 Delivery O2 Flow Rate FiO2 02/09/18 22:56 98.5 112 16 143/73 (96) 95 Orders Orders Ibuprofen (Motrin) (02/09/18 23:15) Tetanus/Diphtheria Tox Adult (Tetanus/Di (02/09/18 23:15) Complete Blood Count With Diff (02/09/18 23:14) Comprehensive Metabolic Panel (02/09/18 23:14) Thyroid Stimulating Hormone (02/09/18 23:14) Psych Screen (02/09/18 23:14) Drug Screen, Random Urine (02/09/18 23:14) Alcohol (Ethanol) (02/09/18 23:14) Lorazepam (Ativan) (02/09/18 23:45) Labs Laboratory Tests Test 02/09/18 23:21 White Blood Count 6.4 TH/MM3 Red Blood Count 5.17 MIL/MM3 Hemoglobin 14.9 GM/DL Hematocrit 45.6 % Mean Corpuscular Volume 88.2 FL Mean Corpuscular Hemoglobin 28.8 PG Mean Corpuscular Hemoglobin Concent 32.6 % Red Cell Distribution Width 13.4 % Platelet Count 282 TH/MM3 Mean Platelet Volume 9.1 FL Neutrophils (%) (Auto) 48.9 % Lymphocytes (%) (Auto) 39.4 % Monocytes (%) (Auto) 7.6 % Eosinophils (%) (Auto) 3.5 % Basophils (%) (Auto) 0.6 % Neutrophils # (Auto) 3.1 TH/MM3 Lymphocytes # (Auto) 2.5 TH/MM3 Monocytes # (Auto) 0.5 TH/MM3 Eosinophils # (Auto) 0.2 TH/MM3 Basophils # (Auto) 0.0 TH/MM3 CBC Comment DIFF FINAL Differential Comment Blood Urea Nitrogen 7 MG/DL Creatinine 0.84 MG/DL Random Glucose 112 MG/DL Total Protein 7.0 GM/DL Albumin 3.5 GM/DL Calcium Level 8.1 MG/DL Alkaline Phosphatase 70 U/L Aspartate Amino Transf (AST/SGOT) 50 U/L Alanine Aminotransferase (ALT/SGPT) 67 U/L Total Bilirubin 0.2 MG/DL Sodium Level 143 MEQ/L Potassium Level 3.8 MEQ/L Chloride Level 109 MEQ/L Carbon Dioxide Level 21.8 MEQ/L Anion Gap 12 MEQ/L Estimat Glomerular Filtration Rate 104 ML/MIN Thyroid Stimulating Hormone 3rd Gen 1.310 uIU/ML Ethyl Alcohol Level 163 MG/DL [facility] Medical Decision Making Medical Screen Exam Complete: Yes Emergency Medical Condition: Yes Interpretation(s) 12:51 AM. CBC within normal limits. CMP within normal limits. Alcohol 163. Differential Diagnosis Differential diagnosis including depression, suicidal. Narrative Course 37-year-old male with depression and suicidal attempts. Td booster given. Ibuprofen 600 mg p.o. given for pain. Ativan 1 mg p.o. given. 12:52 AM. Patient is medically cleared for psychiatric evaluation. Scripts No Active Prescriptions or Reported Meds Walter Morales MD Feb 09, 2018 23:19
[2018-02-09] MEDS ORDERED: LORazepam 1 MG TAB PO ONE (23:45)
[2018-02-09 23:55] LABS: AUTOMATED NEUTROPHIL # 3.1 TH/MM3 (1.8-7.7); BASOPHIL % 0.6 % (0.0-2.0); EOSINOPHIL # 0.2 TH/MM3 (0-0.4); EOSINOPHIL % 3.5 % (0.0-4.0); HEMATOCRIT 45.6 % (39.0-51.0); HEMOGLOBIN 14.9 GM/DL (13.0-17.0); LYMPH % 39.4 % (9.0-44.0); LYMPHOCYTE # 2.5 TH/MM3 (1.0-4.8); MEAN CELL VOLUME 88.2 FL (80.0-100.0); MEAN CORPUSCULAR HEMOGLOBIN 28.8 PG (27.0-34.0); MEAN CORPUSCULAR HGB CONC 32.6 % (32.0-36.0); MEAN PLATELET VOLUME 9.1 FL (7.0-11.0); MONO % 7.6 % (0.0-8.0); MONOCYTE # 0.5 TH/MM3 (0-0.9); NEUT % 48.9 % (16.0-70.0); PLATELET COUNT 282 TH/MM3 (150-450); RED BLOOD COUNT 5.17 MIL/MM3 (4.50-5.90); RED CELL DISTRIBUTION WIDTH 13.4 % (11.6-17.2); WHITE BLOOD COUNT 6.4 TH/MM3 (4.0-11.0)
[2018-02-10 00:16] LABS: ALKALINE PHOSPHATASE 70 U/L (45-117); TOTAL BILIRUBIN ADULT 0.2 MG/DL (0.2-1.0)
[2018-02-10 00:23] LABS: ALBUMIN 3.5 GM/DL (3.4-5.0); ALT (GPT) 67 U/L (12-78); AST (GOT) 50 U/L (15-37); BICARBONATE 21.8 MEQ/L (21.0-32.0); BLOOD UREA NITROGEN 7 MG/DL (7-18); CALCIUM 8.1 MG/DL (8.5-10.1); CHLORIDE 109 MEQ/L (98-107); CREATININE 0.84 MG/DL (0.60-1.30); GLOMERULAR FILTRATION RATE 104 ML/MIN (>89); GLUCOSE,RANDOM 112 MG/DL (74-106); SODIUM (NA) 143 MEQ/L (136-145)
[2018-02-10 04:11] VITALS: PULSE 82; RESP 16; O2SAT 96
[2018-02-10] MEDS ORDERED: IBUPROFEN 800 MG TAB PO ONE ×2 (08:30→15:45)
[2018-02-10] MEDS ORDERED: hydrOXYzine PAMOATE 25 MG CAP PO ONE (08:30)
[2018-02-10 15:54] VITALS: BP 154/87; PULSE 68; RESP 16; O2SAT 98
[2018-02-11 02:14] VITALS: BP 114/62; PULSE 63; RESP 18; O2SAT 97
[2018-02-11 06:26] VITALS: BP 119/69; PULSE 62; RESP 18; O2SAT 98
[2018-02-11] MEDS ORDERED: LORazepam 2 MG/ML VIAL IM STA (10:04)
[2018-02-11] MEDS ORDERED: HALOPERIDOL LACTATE 5 MG/ML AMP IM ONE (10:15)
[2018-02-11] MEDS ORDERED: NICOTINE 21 MG/24 HR PATCH T-DERMAL ONE (12:15)
[2018-02-11] MEDS: hydrOXYzine HCL 25 MG TAB PO SCH ×3 (12:20→22:00)
[2018-02-11 14:00] VITALS: BP 130/83; PULSE 73; RESP 20; O2SAT 97
--- NOTE | 2018-02-11 15:29 | PD.PSY.CON ---
Provisional Diagnosis Admission Date [place] I. Alcohol-induced mood disorder, alcohol and benzodiazepine use disorder, history of polysubstance, history of bipolar [place] II. Unspecified personality disorder, rule out antisocial personality disorder [place] III. Hypertension History of Present Illness Service Psychiatry Consult Requested By ER Reason for Consult Suicidal ideation Primary Care Physician No Primary Care Physician HPI The patient is 37-year-old man, domiciled in [place] with his brother, , employed, with psychiatric history of polysubstance dependence, including benzodiazepines, alcohol, self-reported bipolar, previous psychiatric hospitalizations, suicidal attempts, self cutting behavior, poor impulse control, drug-seeking behavior, medical history hypertension, who was Vogel acted for depression and suicidal attempt. Patient has history of depression. Patient tried to cut himself with a pocket knife this evening. Patient states that he has burning pain to the right wrist area. Patient states that he is not up-to-date with TD booster. BAL was 163, positive for benzos. On psychiatric evaluation today the patient is calm, cooperative, stating that yesterday he felt very depressed, he has been facing depression after of his , he says that he was missing his 4 kids for the Father's Day and he felt very frustrated and decided to cut himself. He admits that at the time he caught himself he was drinking alcohol. The patient called the police himself, he says that he needs help, he wants to restart his medications, he says that he needs to be in Klonopin 1 mg 3 times daily, Lexapro unknown dose. Patient reports that he is not actively suicidal, but he is afraid of doing something wrong. He is not actively withdrawing at the moment is oriented 3, no attention deficit, no fluctuation of consciousness. Review of Systems Constitutional: DENIES: Diaphoretic episodes, Fatigue, Fever, Weight gain, Weight loss, Chills, Dizziness, Change in appetite, Night Sweats Endocrine: DENIES: Heat/cold intolerance, Polydipsia, Polyuria, Polyphagia Eyes: DENIES: Blurred vision, Diplopia, Eye inflammation, Eye pain, Vision loss , Photosensitivity, Double Vision Ears, nose, mouth, throat: DENIES: Tinnitus, Hearing loss, Vertigo, Nasal discharge, Oral lesions, Throat pain, Hoarseness, Ear Pain, Running Nose, Epistaxis, Sinus Pain, Toothache, Odynophagia Respiratory: DENIES: Apneas, Cough, Snoring, Wheezing, Hemoptysis, Sputum production, Shortness of breath Cardiovascular: DENIES: Chest pain, Palpitations, Syncope, Dyspnea on Exertion , PND, Lower Extremity Edema, Orthopnea, Claudication Gastrointestinal: DENIES: Abdominal pain, Black stools, Bloody stools, Constipation, Diarrhea, Nausea, Vomiting, Difficulty Swallowing, Anorexia Genitourinary: DENIES: Sexual dysfunction, Urinary frequency, Urinary incontinence, Urgency, Hematuria, Dysuria, Nocturia, Penile Discharge, Testicular Pain, Testicular Swelling Musculoskeletal: DENIES: Joint pain, Muscle aches, Stiffness, Joint Swelling, Back pain, Neck pain Integumentary: DENIES: Abnormal pigmentation, Nail changes, Pruritus, Rash Hematologic/lymphatic: DENIES: Bruising, Lymphadenopathy Immunologic/allergic: DENIES: Eczema, Urticaria Neurologic: DENIES: Abnormal gait, Headache, Localized weakness, Paresthesias, Seizures, Speech Problems, Tremor, Poor Balance Psychiatric: COMPLAINS OF: Suicidal Ideation, DENIES: Anxiety, Confusion, Mood changes, Depression, Hallucinations, Agitation, Homicidal Ideation, Delusions Past Family Social History Coded Allergies: No Known Allergies (Verified Allergy, Unknown, 02/09/18) *MDRO Multi-Drug Resistant Organism (Verified Adverse Reaction, Unknown, ) MRSA (arm)-11/08/16 Discontinued Reported Medications Alprazolam (Xanax) 1 Mg Tab, 1 MG PO Q6H Y for ANXIETY, TAB 0 Refills 11/08/16 Discontinued Scripts Hydroxyzine Pamoate (Hydroxyzine Pamoate) 25 Mg Cap, 25 MG PO Q6H Y for anxiety , #30 CAP Prov:Allan Juarez MD 01/09/17 Clonidine (Catapres) 0.1 Mg Tab, 0.1 MG PO Q12HR for Blood Pressure Management, #60 TAB Prov:Allan Juarez MD 01/09/17 Oxycodone-Acetaminophen (Percocet) 7.5-325 mg Tab, 1 TAB PO Q4H Y for PAIN SCALE 6 TO 10, #20 TAB 0 Refills Prov:Pancho Bertrand MD 11/24/16 Current Medications Medications (Trade) Dose Ordered Sig/Mercy Route Start Time Stop Time Status Last Admin (Atarax) 25 mg Q8HR PO 02/11/18 10:00 02/11/18 12:20 Family Psych History No family psychiatric history Social History Patient was born and raised in [place], he losing [place] with his brother, he has 4 kids, he is , he works [email or web address], his highest level of education is high school Patient's Strengths (min. 2) Verbal communication Physical Exam No tremors, no EPS, no withdrawal at the moment Vital Signs Vital Signs Date Time Temp Pulse Resp B/P (MAP) Pulse Ox O2 Delivery O2 Flow Rate FiO2 02/11/18 14:00 73 20 130/83 (99) 97 Room Air 02/09/18 22:56 98.5 Mental Status Examination Appearance: Appropriate Consciousness: Alert Orientation: x4 Motor Activity: Normal gait Speech: Unremarkable Language: Adequate Fund of Knowledge: Adequate Attention and Concentration: Adequate Memory: Unremarkable Mood: Sad Affect: Irritable Thought Process & Associations: Intact Thought Content: Appropriate Hallucination Type: None Delusion Type: None Suicidal Ideation: Yes Suicidal Plan: No Suicidal Intention: No Homicidal Ideation: No Homicidal Plan: No Homicidal Intention: No Insight: Poor Judgment: Poor Assessment & Plan Problem List: (1) Substance induced mood disorder ICD Codes: F19.94 - Other psychoactive substance use, unspecified with psychoactive substance-induced mood disorder Status: Acute Assessment & Plan: The patient on psychiatric evaluation reports depressed mood , vague suicidal ideation, no plan. The patient has history of polysubstance dependence, including alcohol, benzodiazepines, previous suicide attempts, self cutting behavior, previous psychiatric hospitalizations. The patient has self- inflicted several very superficial cuts in his right arm in the context of depression and alcohol intoxication. During the evaluation the patient is kind of focus in getting medication for anxiety, especially clonazepam, he is willing to be admitted in psychiatry for stabilization and safety. He also reports that he is willing to look treatment for his alcoholism. The patient would be transferred to [facility] to start treatment of depression and alcohol/ benzodiazepine use disorder. While waiting in the list I will start the patient hydroxyzine 25 mg twice daily for anxiety. He also will be in [facility]WA protocol. Assessment & Plan Estimated LOS: Eduardo Ramirez MD Feb 11, 2018 15:29
[2018-02-12 02:29] VITALS: BP 113/62; PULSE 64; RESP 18; O2SAT 96
[2018-02-12 06:40] VITALS: BP 134/79; PULSE 71; RESP 18; O2SAT 97
--- NOTE | 2018-02-12 09:27 | PD ---
Data Data Last Documented VS Vital Signs Date Time Temp Pulse Resp B/P (MAP) Pulse Ox O2 Delivery O2 Flow Rate FiO2 02/12/18 06:40 71 18 134/79 (97) 97 Room Air 02/09/18 22:56 98.5 Orders Orders Ibuprofen (Motrin) (02/09/18 23:15) Tetanus/Diphtheria Tox Adult (Tetanus/Di (02/09/18 23:15) Complete Blood Count With Diff (02/09/18 23:14) Comprehensive Metabolic Panel (02/09/18 23:14) Thyroid Stimulating Hormone (02/09/18 23:14) Psych Screen (02/09/18 23:14) Drug Screen, Random Urine (02/09/18 23:14) Alcohol (Ethanol) (02/09/18 23:14) Lorazepam (Ativan) (02/09/18 23:45) Diet Regular Basic (02/10/18 Breakfast) Hydroxyzine Pamoate (Vistaril) (02/10/18 08:30) Ibuprofen (Motrin) (02/10/18 08:30) Diet Regular Basic (02/10/18 Lunch) Diet Regular Basic (02/10/18 Dinner) Ibuprofen (Motrin) (02/10/18 15:45) Diet Regular Basic (02/11/18 Breakfast) Hydroxyzine Hcl (Atarax) (02/11/18 10:00) Nicotine 21 Mg Patch.24 Hr (Habitrol 21 (02/11/18 12:15) Diet Regular Basic (02/11/18 Dinner) Diet Regular Basic (02/12/18 Breakfast) Ed Discharge Order (02/12/18 09:23) Labs Laboratory Tests Test 02/09/18 23:21 02/10/18 08:20 White Blood Count 6.4 TH/MM3 Red Blood Count 5.17 MIL/MM3 Hemoglobin 14.9 GM/DL Hematocrit 45.6 % Mean Corpuscular Volume 88.2 FL Mean Corpuscular Hemoglobin 28.8 PG Mean Corpuscular Hemoglobin Concent 32.6 % Red Cell Distribution Width 13.4 % Platelet Count 282 TH/MM3 Mean Platelet Volume 9.1 FL Neutrophils (%) (Auto) 48.9 % Lymphocytes (%) (Auto) 39.4 % Monocytes (%) (Auto) 7.6 % Eosinophils (%) (Auto) 3.5 % Basophils (%) (Auto) 0.6 % Neutrophils # (Auto) 3.1 TH/MM3 Lymphocytes # (Auto) 2.5 TH/MM3 Monocytes # (Auto) 0.5 TH/MM3 Eosinophils # (Auto) 0.2 TH/MM3 Basophils # (Auto) 0.0 TH/MM3 CBC Comment DIFF FINAL Differential Comment Blood Urea Nitrogen 7 MG/DL Creatinine 0.84 MG/DL Random Glucose 112 MG/DL Total Protein 7.0 GM/DL Albumin 3.5 GM/DL Calcium Level 8.1 MG/DL Alkaline Phosphatase 70 U/L Aspartate Amino Transf (AST/SGOT) 50 U/L Alanine Aminotransferase (ALT/SGPT) 67 U/L Total Bilirubin 0.2 MG/DL Sodium Level 143 MEQ/L Potassium Level 3.8 MEQ/L Chloride Level 109 MEQ/L Carbon Dioxide Level 21.8 MEQ/L Anion Gap 12 MEQ/L Estimat Glomerular Filtration Rate 104 ML/MIN Thyroid Stimulating Hormone 3rd Gen 1.310 uIU/ML Ethyl Alcohol Level 163 MG/DL Urine Opiates Screen NEG Urine Barbiturates Screen NEG Urine Amphetamines Screen NEG Urine Benzodiazepines Screen POS Urine Cocaine Screen NEG Urine Cannabinoids Screen NEG MDM Medical Record Reviewed: Yes Supervised Visit with [facility]: No Narrative Course Patient seen and evaluated by Dr. Rooney with psychiatry, he was deemed safe to be discharged home, Vogel act was lifted by Dr. Rooney. Patient was given outpatient follow-up. DX: Alcohol induced mood disorder Diagnosis Primary Impression: Alcohol-induced mood disorder Referrals: [facility] Patient Instructions: General Instructions Additional Instruction: Please follow-up with your primary care doctor Return to the emergency room as needed Scripts No Active Prescriptions or Reported Meds Disposition: 01 DISCHARGE HOME Condition: Stable Cassidy Woods Feb 12, 2018 09:27
[2018-02-12] MEDS: hydrOXYzine HCL 25 MG TAB PO SCH (10:00)
--- NOTE | 2018-02-12 15:54 | HHI.PYPN ---
Subjective Remarks The patient was seen this morning at 7:45 AM Patient was seen today for psychiatric reevaluation. The case was discussed with ER staff. On my psychiatric evaluation today the patient is calm, cooperative, reporting anxiety. Patient states that he has been extremely anxious and he needs clonazepam. He denies suicidal enemas ideation, he denies visual and auditory hallucinations. The patient reports that he wants to engage in treatment for drug abuse and restart his psychotropics. Patient reports that he is willing to go voluntarily by his self to outpatient appointments. No agitation, no aggressive behavior reported. However, constant drug-seeking behavior has been present Review of Systems Psychiatric: COMPLAINS OF: Anxiety Except as stated in HPI: all other systems reviewed are Neg Mental Status Examination Appearance: Appropriate Consciousness: Alert Orientation: x4 Motor Activity: Normal gait Speech: Unremarkable Language: Adequate Fund of Knowledge: Adequate Attention and Concentration: Adequate Memory: Unremarkable Mood: Sad Affect: Irritable Thought Process & Associations: Intact Thought Content: Appropriate Hallucination Type: None Delusion Type: None Suicidal Ideation: No Suicidal Plan: No Suicidal Intention: No Homicidal Ideation: No Homicidal Plan: No Homicidal Intention: No Insight: Fair Judgment: Impulsive Results Vitals/IOs Vital Signs Date Time Temp Pulse Resp B/P (MAP) Pulse Ox O2 Delivery O2 Flow Rate FiO2 02/12/18 10:22 02/12/18 06:40 71 18 97 Room Air 02/09/18 22:56 98.5 Assessment & Plan Problem List: (1) Substance induced mood disorder ICD Codes: F19.94 - Other psychoactive substance use, unspecified with psychoactive substance-induced mood disorder Status: Acute Assessment & Plan: On psychiatric evaluation today the patient denies symptomatology of depression, suicidal and homicidal ideation, he denies visual and auditory hallucinations. He continues to report anxiety, continues to demand benzodiazepines. Patient is willing to continue his catheter care as an outpatient, he understands that he also needs treatment for substance abuse. He does not meet criteria for involuntary psychiatric admission. During his stay in the ER patient has showed a significant drug-seeking behavior as well as clinically significant cluster B traits. He does not meet criteria for involuntary psychiatric admission. Patient will be discharged back home with a referral to [facility]. Assessment & Plan Estimated LOS: days Justification for Cont. Inpt. No admission indicated Eduardo Rooney MD Feb 12, 2018 15:54
== END 2018-02-12 10:24 | disposition home or self-care (01) ==
LOC: NEPD 22:47 → NEPJ 02-12 10:24
DX: F10.14 Alcohol abuse with alcohol-induced mood disorder (principal); Y90.6 Blood alcohol level of 120-199 mg/100 ml; F10.129 Alcohol abuse with intoxication, unspecified; S60.911A Unspecified superficial injury of right wrist, initial encounter; X78.1XXA Intentional self-harm by knife, initial encounter; R45.851 Suicidal ideations; F19.90 Other psychoactive substance use, unspecified, uncomplicated; I10 Essential (primary) hypertension; F32.9 Major depressive disorder, single episode, unspecified; F17.210 Nicotine dependence, cigarettes, uncomplicated; F41.9 Anxiety disorder, unspecified; B19.20 Unspecified viral hepatitis C without hepatic coma; Z23 Encounter for immunization; Z76.5 Malingerer [conscious simulation]
CPT/HCPCS: 80053; 80307; 84443; 85025; 90471; 90714; 99284; Q0177